=== PATIENT | male | born 1955 | race Caucasian/White ===

== ENCOUNTER 2016-06-01 01:34 | Emergency (ER) | payer MEDICARE ==
[2016-06-01 02:44] VITALS: BP 140/62
[2016-06-01] MEDS ORDERED: Sulfamethoxazole/Trimethoprim 800-160 MG Tab ONE (02:45)
[2016-06-01] MEDS: Ondansetron 4 MG Tab.DIS PO ONE ×2 (03:45→03:46)
[2016-06-01] MEDS ORDERED: Meperidine PF 50 MG/ML Syringe IM ONE (03:45)
[2016-06-01] MEDS ORDERED: Meperidine PF 50 MG/ML Syringe ONE (03:47)
[2016-06-01] MEDS ORDERED: Ondansetron 4 MG Tab.DIS ONE ×2 (03:47→03:54)
--- NOTE | 2016-06-01 07:57 | CT ---
DATE OF SERVICE: 06/01/16 CLINICAL DATA: dizzy UNENHANCED BRAIN CT: Multislice slice acquisition through the brain without IV contrast was performed. Comparison is made to a prior exam dated 07/02/2014. There are periventricular lucencies bilaterally consistent with small vessel ischemic change. No masses or mass effect. No intracranial hemorrhage. No evidence of acute or subacute infarct. There is a rounded low density lesion in the right sphenoid sinus consistent with a retention cyst or polyp. There is mild mucosal thickening within the ethmoid and frontal sinuses consistent with chronic sinusitis. No air-fluid levels. No fractures. IMPRESSION: No acute intracranial abnormalities. [id number] [facility]
--- NOTE | 2016-06-09 21:26 | EDM.PDOC ---
ED HPI DIZZINESS - General Chief Complaint: General Stated Complaint: DIZZY Time Seen by Provider: 06/01/16 02:50 Source: Reports: Patient Exam Limitations: Reports: No limitations - History of Present Illness INITIAL COMMENTS - FREE TEXT/NARRATIVE: This is a 61yo M here for complaints of dizziness. Patient states he has felt this way for a day. He denies any other concerns. No fever, no chills, no sob, no chest pain, no weakness, history of left arm disability from a fall hitting his head on cement at work. Patient states he also has a mild headache. Patient denies any loc or nausea. Timing/Duration: Reports: Day(s): Severity: mild Worsens With: Reports: head movement - Related Data Allergies/ADRs: Allergies Allergy/AdvReac Type Severity Reaction Status Date / Time Penicillins Allergy Unknown unknown Verified 07/02/14 06:00 Home Meds: Home Meds Naproxen [Naprosyn] 500 mg PO BID 07/02/14 [History] OLANZapine 10 mg PO BEDTIME 07/02/14 [History] Cyclobenzaprine [Flexeril] 5 mg PO DAILY 06/01/16 [History] Social & Family History - Tobacco Use Smoking Status *Q: Never Smoker Second Hand Smoke Exposure: No - Alcohol Use Days Per Week of Alcohol Use: 0 - Recreational Drug Use Recreational Drug Use: No ED ROS GENERAL - Review of Systems Review Of Systems: ROS reveals no pertinent complaints other than HPI. ED EXAM, DIZZINESS - Physical Exam Exam: See Below Exam Limited By: No limitations General Appearance: alert, WD/WN, mild distress Eye Exam: bilateral eye: EOMI, PERRL Ears: normal external exam, normal canal, hearing grossly normal, normal TMs Nose: normal inspection, normal mucosa, no blood Throat/Mouth: Normal inspection, Normal lips, Normal teeth, Normal gums, Normal oropharynx, Normal voice, No airway compromise Head Exam: atraumatic, normocephalic Neck: normal inspection, supple, non-tender, full range of motion Respiratory/Chest: no respiratory distress, lungs clear, normal breath sounds Cardiovascular: normal peripheral pulses, regular rate, rhythm, no edema, no JVD , no murmur, no rub GI/Abdominal: normal bowel sounds, soft, non tender Neurological: alert, normal mood/affect, normal dorsiflexion, CN II-XII intact, normal plantar flexion, normal gait, normal reflexes, no motor/sensory deficits , oriented x 3, other (prior history of left arm tremors and weakness- at baseline per patient) DTR: 2+: bicep (R), bicep (L) Back Exam: normal inspection, full range of motion Extremities: normal inspection, normal range of motion, non-tender, no pedal edema, normal capillary refill Psychiatric: anxious Skin Exam: Warm, Dry, Intact Course - Vital Signs Last Recorded V/S: Last Vital Signs Temp 36.8 C 06/01/16 02:42 Pulse 66 06/01/16 02:42 Resp 20 06/01/16 02:42 BP 140/62 06/01/16 02:42 Pulse Ox 99 06/01/16 02:42 - Orders/Labs/Meds Labs: Laboratory Tests 06/01/16 06/01/16 Range/Units 02:50 02:50 WBC 7.4 (4.0-11.0) K/uL RBC 4.98 (4.50-6.50) M/uL Hgb 14.4 (13.0-18.0) g/dL Hct 41.2 (40.0-54.0) % MCV 83 (76-96) fL MCH 28.9 (27.0-32.0) pg MCHC 35.0 (31.0-35.0) g/dL RDW 13.3 (11.0-16.0) % Plt Count 165 (150-400) K/uL MPV 10.3 H (6.0-10.0) fL Neut % (Auto) 82.7 H (45.0-70.0) % Lymph % (Auto) 10.9 L (20.0-40.0) % [place] % (Auto) 5.0 (3.0-10.0) % Eos % (Auto) 0.9 L (1.0-5.0) % Baso % (Auto) 0.5 (0.0-0.5) % Neut # 6.13 (2.00-7.50) K/uL Lymph # 0.81 L (1.50-4.00) K/uL [place] # 0.37 (0.20-0.80) K/uL Eos # 0.07 (0.04-0.40) K/uL Baso # 0.04 (0.02-0.10) K/uL Sodium 139 (136-145) mmol/L Potassium 3.4 L (3.5-5.1) mmol/L Chloride 104 (98-107) mmol/L Carbon Dioxide 24.4 (21.0-32.0) mmol/L Anion Gap 14.0 (5.0-15.0) mmol/L BUN 12 (8-26) mg/dL Creatinine 1.21 (0.70-1.30) mg/dL Est Cr Clr Drug Dosing 66.55 mL/min Estimated GFR (MDRD) > 60 (>60) MLS/MIN BUN/Creatinine Ratio 9.9 (6-25) Glucose 174 H (74-100) mg/dL Calcium 8.0 L (8.5-10.1) mg/dL Total Bilirubin 0.8 D (0.0-1.0) mg/dL AST 17 (15-37) U/L ALT 20 (12-78) U/L Alkaline Phosphatase 62 (46-116) U/L Total Protein 6.7 (6.4-8.2) g/dL Albumin 3.2 L (3.4-5.0) g/dL Globulin 3.5 (2.2-4.2) g/dL Albumin/Globulin Ratio 0.9 (0.8-2.0) Meds: Medications Discontinued Medications Generic Name Dose Route Start Last Admin Trade Name Freq PRN Reason Stop Dose Admin Meclizine HCl 25 mg 06/01/16 02:56 06/01/16 02:59 Antivert PO 25 mg DAILY PRN Administration Dizziness Meclizine HCl Confirm 06/01/16 02:58 06/01/16 03:06 Antivert Administered 06/01/16 02:59 Not Given Dose 25 mg .ROUTE .STK-MED ONE Meperidine HCl Confirm 06/01/16 03:47 Demerol Administered 06/01/16 03:48 Dose 50 mg .ROUTE .STK-MED ONE Meperidine HCl 25 mg 06/01/16 03:45 06/01/16 04:07 Demerol IM 06/01/16 03:46 25 mg ONETIME ONE Administration Ondansetron HCl Confirm 06/01/16 03:47 Zofran Odt Administered 06/01/16 03:48 Dose 4 mg .ROUTE .STK-MED ONE Ondansetron HCl 4 mg 06/01/16 03:45 06/01/16 03:46 Zofran Odt PO 06/01/16 03:46 4 mg ONETIME ONE Administration Ondansetron HCl Confirm 06/01/16 03:54 Zofran Odt Administered 06/01/16 03:55 Dose 4 mg .ROUTE .STK-MED ONE Trimethoprim/Sulfamethoxazole 20 tab 06/01/16 02:45 Septra Ds .ROUTE 06/01/16 02:46 .STK-MED ONE Departure - Departure Time of Disposition: 04:00 Disposition: DC/Tfer to Hospice - Home 50 Condition: good Clinical Impression: Dizziness Instructions: Dizziness, [id number] Referrals: PCP,None [Primary Care Provider] - Forms: ED Department Discharge Additional Instructions: Follow-up in the clinic in three to four days if you are still dizzy. Take the full course of antibiotics and fill the script for the last three days. Take the meclizine as needed for the dizziness if it comes back. - Problem List Review Problem List Initiated/Reviewed/Updated: Yes - Assessment/Plan Plan: Patient counseled on close monitoring and f/u in clinic or ER if symptoms worsen. Patient agrees to f/u in clinic if symptoms persist or worsen. Patient was very anxious but both anxiety and dizziness improved after reassurance.
== END 2016-06-01 08:09 | disposition hospice, home (50) ==
LOC: LB.ED 01:34
DX: R42 Dizziness and giddiness (principal); Z88.0 Allergy status to penicillin
CPT/HCPCS: 36415; 70450; 80053; 85025; 96372; 99285; A0425; A0429; A9270; J2175; 99283

== ENCOUNTER 2016-10-24 07:39 | Emergency (ER) | payer MEDICARE ==
[2016-10-24 08:03] VITALS: BP 186/94
[2016-10-24] MEDS ORDERED: predniSONE 10 MG Tab ONE (08:30)
[2016-10-24] MEDS ORDERED: Acetaminophen/HYDROcodone 325-5 MG Tab ONE (08:30)
[2016-10-24] MEDS ORDERED: Triamcinolone Acetonide 40 MG/ML 1 ML MDV ONE (08:40)
[2016-10-24] MEDS ORDERED: Triamcinolone Acetonide 40 MG/ML 1 ML MDV INJECT ONE (08:44)
--- NOTE | 2016-10-24 08:47 | EDM.PDOC ---
ED HPI GENERAL MEDICAL PROBLEM - General Chief Complaint: Lower Extremity Injury/Pain Stated Complaint: RIGHT FOOT PAIN Time Seen by Provider: 10/24/16 08:20 Source of Information: Reports: Patient History Limitations: Reports: No Limitations - History of Present Illness INITIAL COMMENTS - FREE TEXT/NARRATIVE: Pt claims that his right foot has been swollen, painful and red for the past 1 wk now. He does have history of gout and was waiting for the pain and swelling to resolve.But the swelling has got worse and more painful. He has been eating Hamburgers al week. His last episode of gout was about 6 months ago. No fever or chills. Is able to walk on the right foot. rates pain at 10/10. Has taken aleeve 4 tabs today morning. Duration: Week(s): (1) Improves with: Reports: None Worsens with: Reports: None Associated Symptoms: Denies: Confusion, Chest Pain, Cough, Diaphoresis, Fever/ Chills, Nausea/Vomiting, Rash, Seizure, Shortness of Breath, Weakness Treatments DIRECTOR AND PROFESSOR: Reports: NSAIDS right foot Pain Score (Numeric/FACES): 10 - Related Data Allergies Allergy/AdvReac Type Severity Reaction Status Date / Time Penicillins Allergy Unknown unknown Verified 10/24/16 07:56 Home Meds: Home Meds Naproxen [Naprosyn] 500 mg PO BID 07/02/14 [History] OLANZapine 10 mg PO BEDTIME 07/02/14 [History] Cyclobenzaprine [Flexeril] 5 mg PO DAILY 06/01/16 [History] Social & Family History - Tobacco Use Smoking Status *Q: Never Smoker Second Hand Smoke Exposure: No - Alcohol Use Days Per Week of Alcohol Use: 0 - Recreational Drug Use Recreational Drug Use: No Review of Systems - Review of Systems Review Of Systems: See Below Constitutional: Denies: Chills, Fever Eyes: Denies: Inflammation Ears: Denies: Pain Nose: Denies: Purulent Discharge, Serosanguinous Discharge Mouth/Throat: Denies: Throat Swelling, Painful Swallowing Respiratory: Denies: Cough, Sputum Cardiovascular: Denies: Chest Pain, Palpitations GI/Abdominal: Denies: Abdominal Pain, Hematemesis Musculoskeletal: Reports: Foot Pain, Joint Pain, Joint Swelling Neurological: Denies: Confusion, Dizziness ED EXAM, GENERAL - Physical Exam Exam: See Below Exam Limited By: No Limitations General Appearance: Alert, WD/WN, No Apparent Distress Eye Exam: Bilateral Eye: EOMI, PERRL Ears: Normal External Exam, Normal Canal, Hearing Grossly Normal, Normal TMs Ear Exam: Bilateral Ear: Auricle Normal, Canal Normal, TM normal Nose: Normal Inspection, Normal Mucosa, No Blood Throat/Mouth: Normal Inspection, Normal Lips, Normal Teeth, Normal Gums, Normal Oropharynx, Normal Voice, No Airway Compromise Head: Atraumatic, Normocephalic Neck: Normal Inspection, Supple, Non-Tender, Full Range of Motion Respiratory/Chest: No Respiratory Distress, Lungs Clear, Normal Breath Sounds, No Accessory Muscle Use, Chest Non-Tender Cardiovascular: Normal Peripheral Pulses, Regular Rate, Rhythm, No Edema, No Gallop, No JVD, No Murmur, No Rub Extremities: Other (Right Foot: there is swelling and erythema over the right gret toe and the 1st MTP joint. Warm and tender to touch. ) Neurological: Alert, Oriented, CN II-XII Intact, Normal Cognition, Normal Gait, Normal Reflexes, No Motor/Sensory Deficits Course - Vital Signs Text/Narrative:: Pt as subacute Gout attack of the right great toe. This has been going on for 1 wk now, colcrys might not help this late with he attack. hence patient did receive kenalog 40mg Im and also I have placed him on Quick tapering dose of prednisone. Advised rest to the foot. Pain control by alternating motrin 800mg with vicodin every 4 hrs. followup in clinic next week for recheck. Last Recorded V/S: Last Vital Signs Temp 97.1 F 10/24/16 07:56 Pulse 74 10/24/16 07:56 Resp BP 186/94 H 10/24/16 07:56 Pulse Ox 98 10/24/16 07:56 - Orders/Labs/Meds Meds: Medications Discontinued Medications Generic Name Dose Route Start Last Admin Trade Name [place] PRN Reason Stop Dose Admin Triamcinolone Acetonide Confirm 10/24/16 08:40 Kenalog-40 Administered 10/24/16 08:41 Dose 40 mg .ROUTE .STK-MED ONE Triamcinolone Acetonide 40 mg 10/24/16 08:44 10/24/16 08:37 Kenalog-40 INJECT 10/24/16 08:45 40 mg ONETIME ONE Administration Departure - Departure Time of Disposition: 09:00 Disposition: Home, Self-Care 01 Condition: Fair Clinical Impression: Acute gout - Discharge Information Instructions: Low-Purine Diet, Gout, [id number] Referrals: PCP,None [Primary Care Provider] - Forms: ED Department Discharge Additional Instructions: Do not take the Aleve until the flare up is gone, you can take the Motrin 800mg every 6 hours as needed and the [place] every 8 hours as needed for the pain. The prednisone you will take: Day 1 (today) 6 tablets Day 2: 5 tablets Day 3: 4 tablets Day 4: 3 tablets These you will car pick up driver from the pharmacy Day 5: 2 tablets Day 6: 1 tablet Follow up in the clinic as needed - Problem List & Annotations (1) Acute gout SNOMED Code(s): 47243347, 96482839 Code(s): M10.9 - GOUT, UNSPECIFIED Status: Acute Current Visit: Yes - Problem List Review Problem List Initiated/Reviewed/Updated: Yes - Assessment/Plan Assessment:: Acute right foot gout Plan: Pt as subacute Gout attack of the right great toe. This has been going on for 1 wk now, colcrys might not help this late with he attack. hence patient did receive kenalog 40mg Im and also I have placed him on Quick tapering dose of prednisone. Advised rest to the foot. Pain control by alternating motrin 800mg with vicodin every 4 hrs. followup in clinic next week for recheck.
== END 2016-10-24 08:45 | disposition home or self-care (01) ==
LOC: LB.ED 07:39
DX: M10.9 Gout, unspecified (principal); Z88.0 Allergy status to penicillin; Z79.899 Other long term (current) drug therapy
CPT/HCPCS: 96372; 99283; A9270; J3301

== ENCOUNTER 2017-03-27 20:43 | Emergency (ER) | payer MEDICARE ==
[2017-03-27] MEDS: Sodium Chloride 0.9% 10 ML Syringe FLUSH PRN ×2 (21:05→21:40)
[2017-03-27] MEDS ORDERED: Glucagon,Human Recombinant 1 MG Vial IV ONE (21:34)
[2017-03-27] MEDS ORDERED: Sodium Chloride 0.9% 1,000 ML IV SCH (21:45)
--- NOTE | 2017-03-27 23:04 | EDM.PDOC ---
ED HPI GENERAL MEDICAL PROBLEM - General Chief Complaint: Gastrointestinal Problem Stated Complaint: foreign body in throat Time Seen by Provider: 03/27/17 20:50 Source of Information: Reports: Patient History Limitations: Reports: No Limitations - History of Present Illness INITIAL COMMENTS - FREE TEXT/NARRATIVE: Patient is a 62 year old man who has a history of stuck food in his throat who was eating a hamburger and the piece of meat and bread has gotten stuck in his throat. He cannot swallow water and is spitting up his saliva. He does feel a little nauseated and he is uncomfortable with the feeling of the meat being stuck. No other complaints. Onset: Today Onset Date: 03/27/17 Onset Time: 18:30 Duration: Hour(s): (2), Constant Location: Reports: Abdomen (Feels like food in stuck in his upper esophagus.) Quality: Reports: Ache, Same as Previous Episode Severity: Mild Improves with: Reports: None Worsens with: Reports: None Context: Reports: Other (Eating a hamburger.) Associated Symptoms: Reports: No Other Symptoms - Related Data Allergies Allergy/AdvReac Type Severity Reaction Status Date / Time Penicillins Allergy Unknown unknown Verified 10/24/16 07:56 Home Meds: Home Meds Naproxen [Naprosyn] 500 mg PO BID 07/02/14 [History] OLANZapine 10 mg PO BEDTIME 07/02/14 [History] Cyclobenzaprine [Flexeril] 5 mg PO DAILY 06/01/16 [History] Social & Family History - Tobacco Use Smoking Status *Q: Never Smoker Second Hand Smoke Exposure: No - Alcohol Use Days Per Week of Alcohol Use: 0 - Recreational Drug Use Recreational Drug Use: No ED ROS GENERAL - Review of Systems Review Of Systems: See Below Constitutional: Reports: Decreased Appetite HEENT: Reports: No Symptoms Respiratory: Reports: No Symptoms Cardiovascular: Reports: No Symptoms Endocrine: Reports: No Symptoms GI/Abdominal: Reports: Nausea, Other (Food is stuck in his upper throat area. No problems breathing.) : Reports: No Symptoms Musculoskeletal: Reports: No Symptoms Skin: Reports: No Symptoms Neurological: Reports: No Symptoms Psychiatric: Reports: No Symptoms Hematologic/Lymphatic: Reports: No Symptoms Immunologic: Reports: No Symptoms ED EXAM, GI/ABD - Physical Exam Exam: See Below Exam Limited By: No Limitations General Appearance: Alert, WD/WN, No Apparent Distress Eyes: Bilateral: Normal Appearance, EOMI Ears: Normal External Exam, Normal Canal, Hearing Grossly Normal, Normal TMs Nose: Normal Inspection, Normal Mucosa, No Blood Throat/Mouth: Normal Inspection, Normal Lips, Normal Teeth, Normal Gums, Normal Oropharynx, Normal Voice, No Airway Compromise Head: Atraumatic, Normocephalic Neck: Normal Inspection, Supple, Non-Tender, Full Range of Motion Respiratory/Chest: No Respiratory Distress, Lungs Clear, Normal Breath Sounds, No Accessory Muscle Use, Chest Non-Tender Cardiovascular: Normal Peripheral Pulses, Regular Rate, Rhythm, No Edema, No Gallop, No JVD, No Murmur, No Rub GI/Abdominal Exam: Normal Bowel Sounds, Soft, Non-Tender, No Organomegaly, No Distention, No Abnormal Bruit, No Mass, Pelvis Stable, Other (Feels like food is caught in his upper esophagus.) Back Exam: Normal Inspection Extremities: Normal Inspection, Normal Range of Motion, Non-Tender, Normal Capillary Refill, No Pedal Edema Neurological: Alert, Oriented, CN II-XII Intact, Normal Cognition, Normal Gait, Normal Reflexes, No Motor/Sensory Deficits Psychiatric: Normal Affect, Normal Mood Course - Vital Signs Text/Narrative:: Patient had an uneventful ED stay. As he calmed the bolus of hamburger seemed to move and get better. He was given 1 mg of IV Glucagon and the bolus of hamburger passed easily and he felt much better. He will see Dr. Shaw on March 30, 2017 to be set up for an EGD and possible dilation of his esophagus. He will return to ED if any problems arise before then. - Orders/Labs/Meds Orders: Active Orders 24 hr Category Date Time Status Sodium Chloride 0.9% [Normal Saline] 1,000 ml Med 03/27/17 21:45 Active IV ASDIRECTED Sodium Chloride 0.9% [Saline Flush] Med 03/27/17 21:35 Active 10 ml FLUSH ASDIRECTED PRN Saline Lock Insert [OM.PC] Routine Oth 03/27/17 21:35 Ordered Medication Orders Sodium Chloride (Normal Saline) 1,000 mls @ 125 mls/hr IV ASDIRECTED HODAN Sodium Chloride (Saline Flush) 10 ml FLUSH ASDIRECTED PRN PRN Reason: Keep Vein Open Labs: Laboratory Tests 03/27/17 03/27/17 Range/Units 21:15 21:15 WBC 9.6 D (4.0-11.0) K/uL RBC 5.36 (4.50-6.50) M/uL Hgb 15.8 (13.0-18.0) g/dL Hct 46.0 (40.0-54.0) % MCV 86 (76-96) fL MCH 29.5 (27.0-32.0) pg MCHC 34.3 (31.0-35.0) g/dL RDW 12.7 (11.0-16.0) % Plt Count 211 D (150-400) K/uL MPV 10.1 H (6.0-10.0) fL Neut % (Auto) 75.5 H (45.0-70.0) % Lymph % (Auto) 15.3 L (20.0-40.0) % [place] % (Auto) 6.4 (3.0-10.0) % Eos % (Auto) 2.2 (1.0-5.0) % Baso % (Auto) 0.6 H (0.0-0.5) % Neut # (Auto) 7.24 (2.00-7.50) K/uL Lymph # (Auto) 1.47 L (1.50-4.00) K/uL [place] # (Auto) 0.61 (0.20-0.80) K/uL Eos # (Auto) 0.21 (0.04-0.40) K/uL Baso # (Auto) 0.06 (0.02-0.10) K/uL Sodium 136 (136-145) mmol/L Potassium 3.9 (3.5-5.1) mmol/L Chloride 100 (98-107) mmol/L Carbon Dioxide 26.2 (21.0-32.0) mmol/L Anion Gap 13.7 (5.0-15.0) mmol/L BUN 15 D (8-26) mg/dL Creatinine 1.49 H D (0.70-1.30) mg/dL Est Cr Clr Drug Dosing 53.34 mL/min Estimated GFR (MDRD) 47 L (>60) MLS/MIN BUN/Creatinine Ratio 10.1 (6-25) Glucose 248 H D (74-100) mg/dL Calcium 8.6 (8.5-10.1) mg/dL Total Bilirubin 0.6 (0.0-1.0) mg/dL AST 12 L (15-37) U/L ALT 32 (12-78) U/L Alkaline Phosphatase 92 (46-116) U/L Total Protein 8.2 (6.4-8.2) g/dL Albumin 3.9 (3.4-5.0) g/dL Globulin 4.3 H (2.2-4.2) g/dL Albumin/Globulin Ratio 0.9 (0.8-2.0) Meds: Medications Generic Name Dose Route Start Last Admin Trade Name Freq PRN Reason Stop Dose Admin Sodium Chloride 1,000 mls @ 125 mls/hr 03/27/17 21:45 Normal Saline IV ASDIRECTED HODAN Sodium Chloride 10 ml 03/27/17 21:35 Saline Flush FLUSH ASDIRECTED PRN Keep Vein Open Discontinued Medications Generic Name Dose Route Start Last Admin Trade Name Freq PRN Reason Stop Dose Admin Glucagon 1 mg 03/27/17 21:34 Glucagen IV 03/27/17 21:35 ONETIME ONE Departure - Departure Time of Disposition: 23:10 Disposition: Home, Self-Care 01 Condition: Good Clinical Impression: Esophageal foreign body Qualifiers: Encounter type: initial encounter Qualified Code(s): T18.108A - Unspecified foreign body in esophagus causing other injury, initial encounter - Discharge Information Instructions: Swallowed Foreign Body, Adult, [id number], Choking, Pediatric Forms: ED Department Discharge - My Orders Last 24 Hours: My Active Orders 03/27/17 21:35 Sodium Chloride 0.9% [Saline Flush] 10 ml FLUSH ASDIRECTED PRN Saline Lock Insert [OM.PC] Routine 03/27/17 21:45 Sodium Chloride 0.9% [Normal Saline] 1,000 ml IV ASDIRECTED - Assessment/Plan Last 24 Hours: My Active Orders 03/27/17 21:35 Sodium Chloride 0.9% [Saline Flush] 10 ml FLUSH ASDIRECTED PRN Saline Lock Insert [OM.PC] Routine 03/27/17 21:45 Sodium Chloride 0.9% [Normal Saline] 1,000 ml IV ASDIRECTED
[2017-03-28 04:58] VITALS: BP 150/93
== END 2017-03-27 22:15 | disposition home or self-care (01) ==
LOC: LB.ED 20:43
DX: T18.108A Unspecified foreign body in esophagus causing other injury, initial encounter (principal); Z88.0 Allergy status to penicillin
CPT/HCPCS: 36415; 80053; 85025; 96374; 99283; J1610; J7050; A0425; A0429; J7040

== ENCOUNTER 2018-07-27 12:02 | Emergency (ER) | payer MEDICARE ==
[2018-07-27 13:48] VITALS: BP 149/86
--- NOTE | 2018-07-27 18:04 | EDM.PDOC ---
ED HPI GENERAL MEDICAL PROBLEM - General Chief Complaint: Headache Stated Complaint: headache Time Seen by Provider: 07/27/18 12:45 - History of Present Illness INITIAL COMMENTS - FREE TEXT/NARRATIVE: This is a 63yo M here for concerns of headache, visual changes, dizziness and inability to sleep. He states the headache did improve in the past with medications but is a constant 3-4/10 pain. He has not been able to sleep for weeks and sleeps an hour and then gets up. He feels dizzy at times and his largest concern is a visual disturbance of the left eye that causes blurriness or movement of objects forwards and back. Onset: Unknown/Unsure Duration: Week(s): Severity: Mild Improves with: Reports: None Worsens with: Reports: None Associated Symptoms: Reports: No Other Symptoms Head Pain Score (Numeric/FACES): 2 - Related Data Allergies Allergy/AdvReac Type Severity Reaction Status Date / Time Penicillins Allergy Unknown unknown Verified 07/27/18 13:38 Home Meds: Home Meds OLANZapine 30 mg PO BEDTIME 07/02/14 [History] Cyclobenzaprine [Flexeril] 5 mg PO DAILY 06/01/16 [History] Gabapentin [Neurontin] 100 mg PO TID 03/28/17 [History] Allopurinol [Zyloprim] 100 mg PO DAILY 07/27/18 [History] Cetirizine HCl [All Day Allergy] 10 mg PO DAILY 07/27/18 [History] Gabapentin [Neurontin] 100 mg PO TID 07/27/18 [History] Melatonin 5 mg PO DAILY 07/27/18 [History] Mirtazapine 45 mg PO DAILY 07/27/18 [History] Naproxen Sodium [Naproxen Sodium ER] 500 mg PO BID 07/27/18 [History] Omeprazole 40 mg PO DAILY 07/27/18 [History] Simethicone [Phazyme] 125 mg PO QID 07/27/18 [History] Zolpidem Tartrate [Zolpidem Tartrate ER] 12.5 mg PO DAILY 07/27/18 [History] tiZANidine HCl [Tizanidine HCl] 4 mg PO TID 07/27/18 [History] Past Medical History HEENT History: Reports: Other (See Below) Other HEENT History: Has had several times where he has or felt like he has had food lodged in esophagus, this time he could not get it down Gastrointestinal History: Reports: Gastritis Other Gastrointestinal History: pooisble gastric stricture Musculoskeletal History: Reports: Arthritis, Other (See Below) Other Musculoskeletal History: left arm surg states deficiet was from injury to neck Neurological History: Reports: Other (See Below) Other Neuro History: Patient is nervous and is anxious Psychiatric History: Reports: Schizophrenia - Infectious Disease History Infectious Disease History: Reports: Chicken Pox, Measles, Mumps - Past Surgical History Neurological Surgical History: Reports: C-Spine Social & Family History - Family History Family Medical History: Unobtainable - Tobacco Use Smoking Status *Q: Never Smoker Second Hand Smoke Exposure: No - Caffeine Use Caffeine Use: Reports: Soda - Recreational Drug Use Recreational Drug Use: No ED ROS GENERAL - Review of Systems Review Of Systems: ROS reveals no pertinent complaints other than HPI. - Physical Exam Exam: See Below Exam Limited By: No Limitations General Appearance: Alert, WD/WN, No Apparent Distress Eye Exam: Bilateral Eye: EOMI, PERRL Ears: Normal External Exam Nose: Normal Inspection, Normal Mucosa, No Blood Throat/Mouth: Normal Inspection Head Exam: Atraumatic, Normocephalic Neck: Normal Inspection, Supple, Non-Tender Respiratory/Chest: No Respiratory Distress, Lungs Clear, Normal Breath Sounds Cardiovascular: Normal Peripheral Pulses, Regular Rate, Rhythm GI/Abdominal: Normal Bowel Sounds, Soft, Non-Tender Neuro Exam (Abbreviated): Alert, Oriented, CN II-XII Intact, Normal Cognition, Normal Gait, Normal Reflexes, No Motor/Sensory Deficits Back Exam: Normal Inspection Extremities: Normal Inspection Psychiatric: Normal Affect, Normal Mood, Other (history of shcizophrenia) Skin Exam: Warm, Dry, Intact, Normal Color Course - Vital Signs Last Recorded V/S: Last Vital Signs Temp 36.6 C 07/27/18 13:00 Pulse 86 07/27/18 13:00 Resp 16 07/27/18 13:00 BP 149/86 H 07/27/18 13:00 Pulse Ox 98 07/27/18 13:00 - Orders/Labs/Meds Orders: Active Orders 24 hr Category Date Time Status Head wo Cont [CT] Stat Exams 07/27/18 13:09 Taken REVERSE T3, SERUM Stat Lab 07/27/18 13:30 Received THYROXINE (T4) FREE, DIRECT, S Stat Lab 07/27/18 13:30 Received VITAMIN B1 (THIAMINE), BLOOD Stat Lab 07/27/18 13:30 Received VITAMIN B12 Stat Lab 07/27/18 13:30 Received Labs: Laboratory Tests 07/27/18 07/27/18 Range/Units 13:30 13:30 WBC 8.0 (4.0-11.0) K/uL RBC 4.94 (4.50-6.50) M/uL Hgb 14.5 (13.0-18.0) g/dL Hct 42.6 (40.0-54.0) % MCV 86 (76-96) fL MCH 29.4 (27.0-32.0) pg MCHC 34.0 (31.0-35.0) g/dL RDW 14.8 (11.0-16.0) % Plt Count 168 D (150-400) K/uL MPV 9.7 (6.0-10.0) fL Neut % (Auto) 70.4 H (45.0-70.0) % Lymph % (Auto) 18.5 L (20.0-40.0) % [place] % (Auto) 7.6 (3.0-10.0) % Eos % (Auto) 2.9 (1.0-5.0) % Baso % (Auto) 0.6 H (0.0-0.5) % Neut # (Auto) 5.66 (2.00-7.50) K/uL Lymph # (Auto) 1.49 L (1.50-4.00) K/uL [place] # (Auto) 0.61 (0.20-0.80) K/uL Eos # (Auto) 0.23 (0.04-0.40) K/uL Baso # (Auto) 0.05 (0.02-0.10) K/uL Sodium 138 (136-145) mmol/L Potassium 4.2 (3.5-5.1) mmol/L Chloride 103 (98-107) mmol/L Carbon Dioxide 23.7 (21.0-32.0) mmol/L Anion Gap 15.5 H (5.0-15.0) mmol/L BUN 20 D (8-26) mg/dL Creatinine 1.39 H (0.70-1.30) mg/dL Est Cr Clr Drug Dosing TNP Estimated GFR (MDRD) 51 L (>60) MLS/MIN BUN/Creatinine Ratio 14.4 (6-25) Glucose 172 H D (74-100) mg/dL Calcium 7.9 L (8.5-10.1) mg/dL Total Bilirubin 0.5 D (0.0-1.0) mg/dL AST 20 (15-37) U/L ALT 31 (12-78) U/L Alkaline Phosphatase 68 (46-116) U/L Total Protein 7.7 (6.4-8.2) g/dL Albumin 3.4 (3.4-5.0) g/dL Globulin 4.3 H (2.2-4.2) g/dL Albumin/Globulin Ratio 0.8 (0.8-2.0) TSH, Ultra Sensitive 6.631 H D (0.358-3.740) uIU/mL Departure - Departure Time of Disposition: 16:00 Disposition: Home, Self-Care 01 Condition: Good Clinical Impression: Visual changes, Dizziness Headache Qualifiers: Headache type: unspecified Headache chronicity pattern: unspecified pattern Intractability: not intractable Qualified Code(s): R51 - Headache Schizophrenia Qualifiers: Schizophrenia type: unspecified Qualified Code(s): F20.9 - Schizophrenia, unspecified Insomnia Qualifiers: Insomnia type: unspecified Qualified Code(s): G47.00 - Insomnia, unspecified - Discharge Information Instructions: Zolpidem extended-release tablets Referrals: PCP,None [Primary Care Provider] - Forms: ED Department Discharge Care Plan Goals: Stop taking zolpidem Tartrate ER 6.25 and take the new prescription (to be filled at [facility]) in place of it. Zolpidem 10mg. Return to clinic August 11 at 11 am. - Problem List & Annotations (1) Dizziness SNOMED Code(s): 398397866, 274750391 Code(s): R42 - DIZZINESS AND GIDDINESS Status: Acute (2) Headache SNOMED Code(s): 85936344 Code(s): R51 - HEADACHE Status: Acute Qualifiers: Headache type: unspecified Headache chronicity pattern: unspecified pattern Intractability: not intractable Qualified Code(s): R51 - Headache (3) Insomnia SNOMED Code(s): 949166859 Code(s): G47.00 - INSOMNIA, UNSPECIFIED Status: Acute Qualifiers: Insomnia type: unspecified Qualified Code(s): G47.00 - Insomnia, unspecified (4) Schizophrenia SNOMED Code(s): 62103465 Code(s): F20.9 - SCHIZOPHRENIA, UNSPECIFIED Status: Acute Qualifiers: Schizophrenia type: unspecified Qualified Code(s): F20.9 - Schizophrenia, unspecified (5) Visual changes SNOMED Code(s): 095350975 Code(s): H53.9 - UNSPECIFIED VISUAL DISTURBANCE Status: Acute - Problem List Review Problem List Initiated/Reviewed/Updated: Yes - My Orders Last 24 Hours: My Active Orders 07/27/18 13:09 Head wo Cont [CT] Stat 07/27/18 13:30 REVERSE T3, SERUM Stat THYROXINE (T4) FREE, DIRECT, S Stat VITAMIN B1 (THIAMINE), BLOOD Stat VITAMIN B12 Stat - Assessment/Plan Last 24 Hours: My Active Orders 07/27/18 13:09 Head wo Cont [CT] Stat 07/27/18 13:30 REVERSE T3, SERUM Stat THYROXINE (T4) FREE, DIRECT, S Stat VITAMIN B1 (THIAMINE), BLOOD Stat VITAMIN B12 Stat Plan: Counseled extensively on headache and management. Discussed dizziness and prevention and f/u. Discussed visual changes with f/u with Delivery Man and further exam if symptoms persist or worsen. Discussed insomnia and medication use and sleep hygiene. F/u as directed with PCP, Psychiatrist and in ER or clinic as needed.
--- NOTE | 2018-07-28 08:39 | CT ---
DATE OF SERVICE: 07/27/18 CLINICAL DATA: Visual disturbance, headache, ringing of ears. UNENHANCED BRAIN CT: Multislice acquisition through the brain without IV contrast was performed. Comparison is made to a prior exam dated 06/01/16. No masses or mass effect. No intracranial hemorrhage. No evidence of acute or subacute infarct. There is rounded low density lesion in the right sphenoid sinus consistent with a retention cyst. No bony abnormalities. IMPRESSION: No acute intracranial abnormalities. [id number] [facility]
== END 2018-07-27 15:20 | disposition home or self-care (01) ==
LOC: LB.ED 12:02
DX: G47.00 Insomnia, unspecified (principal); R51 Headache; R42 Dizziness and giddiness; F20.9 Schizophrenia, unspecified; H53.9 Unspecified visual disturbance; Z88.0 Allergy status to penicillin
CPT/HCPCS: 36415; 70450; 80053; 82607; 84425; 84439; 84443; 84482; 85025; 99284-25

== ENCOUNTER 2018-08-09 10:23 | Emergency (ER) | payer MEDICARE ==
--- NOTE | 2018-08-09 11:13 | CT ---
DATE OF SERVICE: 08/09/18 CLINICAL DATA: Worsening hallucinations. UNENHANCED BRAIN CT: Multislice acquisition through the brain without IV contrast was performed. Comparison is made to a prior exam dated 07/27/18. No masses or mass effect. No intracranial hemorrhage. No evidence of acute or subacute infarct. No changes from the prior study. IMPRESSION: No acute intracranial abnormalities. [id number] [facility]
[2018-08-09 13:36] VITALS: BP 150/69
--- NOTE | 2018-08-15 12:18 | EDM.PDOC ---
ED HPI GENERAL MEDICAL PROBLEM - General Chief Complaint: General Stated Complaint: hearing threatening voices Time Seen by Provider: 08/09/18 10:50 Source of Information: Reports: Patient, Old Records, Provider - History of Present Illness INITIAL COMMENTS - FREE TEXT/NARRATIVE: This is a 63yo M with history of Schizophrenia here for worsening voices. He has noted increasing threatening voices with gun shot sounds in his head. He is becoming increasingly agitated and has not been able to sleep well for months. He feel the symptoms have worsened and is unbearable and was brought from the clinic to the ER. Onset: Gradual Duration: Chronic, Getting Worse Severity: Severe Improves with: Reports: None Worsens with: Reports: None Treatments [employer]: Reports: Other Medication(s) - Related Data Allergies Allergy/AdvReac Type Severity Reaction Status Date / Time Penicillins Allergy Unknown unknown Verified 07/27/18 13:38 Home Meds: Home Meds OLANZapine 30 mg PO BEDTIME 07/02/14 [History] Cyclobenzaprine [Flexeril] 5 mg PO DAILY 06/01/16 [History] Gabapentin [Neurontin] 100 mg PO TID 03/28/17 [History] Allopurinol [Zyloprim] 100 mg PO DAILY 07/27/18 [History] Cetirizine HCl [All Day Allergy] 10 mg PO DAILY 07/27/18 [History] Gabapentin [Neurontin] 100 mg PO TID 07/27/18 [History] Melatonin 5 mg PO DAILY 07/27/18 [History] Mirtazapine 45 mg PO DAILY 07/27/18 [History] Naproxen Sodium [Naproxen Sodium ER] 500 mg PO BID 07/27/18 [History] Omeprazole 40 mg PO DAILY 07/27/18 [History] Simethicone [Phazyme] 125 mg PO QID 07/27/18 [History] Zolpidem Tartrate [Zolpidem Tartrate ER] 12.5 mg PO DAILY 07/27/18 [History] tiZANidine HCl [Tizanidine HCl] 4 mg PO TID 07/27/18 [History] Meclizine HCl 25 mg PO DAILY 08/09/18 [History] Ondansetron HCl [Zofran] 4 mg PO QID PRN 08/09/18 [History] Past Medical History HEENT History: Reports: Other (See Below) Other HEENT History: Has had several times where he has or felt like he has had food lodged in esophagus, this time he could not get it down Gastrointestinal History: Reports: Gastritis Other Gastrointestinal History: pooisble gastric stricture Musculoskeletal History: Reports: Arthritis, Other (See Below) Other Musculoskeletal History: left arm surg states deficiet was from injury to neck Neurological History: Reports: Other (See Below) Other Neuro History: Patient is nervous and is anxious Psychiatric History: Reports: Schizophrenia - Infectious Disease History Infectious Disease History: Reports: Chicken Pox, Measles, Mumps - Past Surgical History Neurological Surgical History: Reports: C-Spine Social & Family History - Family History Family Medical History: Unobtainable - Tobacco Use Smoking Status *Q: Former Smoker Used Tobacco, but Quit: Yes Month/Year Tobacco Last Used: 1969 - Caffeine Use Caffeine Use: Reports: Soda - Recreational Drug Use Recreational Drug Use: No ED ROS GENERAL - Review of Systems Review Of Systems: ROS reveals no pertinent complaints other than HPI. ED EXAM, GENERAL - Physical Exam Exam: See Below Exam Limited By: No Limitations General Appearance: Alert, WD/WN, Anxious, Mild Distress Eye Exam: Bilateral Eye: EOMI, PERRL Ears: Normal External Exam Nose: Normal Inspection Throat/Mouth: Normal Inspection Head: Atraumatic, Normocephalic Neck: Normal Inspection, Supple, Non-Tender Respiratory/Chest: No Respiratory Distress, Lungs Clear Cardiovascular: Normal Peripheral Pulses, Regular Rate, Rhythm Peripheral Pulses: 2+: Dorsalis Pedis (L), Dorsalis Pedis (R) GI/Abdominal: Normal Bowel Sounds Neurological: Alert, Oriented, CN II-XII Intact Psychiatric: Normal Affect, Normal Mood Skin Exam: Warm, Dry, Intact Course - Vital Signs Last Recorded V/S: Last Vital Signs Temp 36.6 C 08/09/18 13:35 Pulse 75 08/09/18 13:35 Resp 18 08/09/18 13:35 BP 150/69 H 08/09/18 13:35 Pulse Ox 99 08/09/18 13:35 - Orders/Labs/Meds Labs: Laboratory Tests 08/09/18 08/09/18 08/09/18 Range/Units 10:50 10:53 10:53 WBC 7.7 (4.0-11.0) K/uL RBC 4.94 (4.50-6.50) M/uL Hgb 14.6 (13.0-18.0) g/dL Hct 43.7 (40.0-54.0) % MCV 89 (76-96) fL MCH 29.6 (27.0-32.0) pg MCHC 33.4 (31.0-35.0) g/dL RDW 15.2 (11.0-16.0) % Plt Count 210 D (150-400) K/uL MPV 9.8 (6.0-10.0) fL Neut % (Auto) 65.6 (45.0-70.0) % Lymph % (Auto) 20.1 (20.0-40.0) % [place] % (Auto) 8.7 (3.0-10.0) % Eos % (Auto) 4.6 (1.0-5.0) % Baso % (Auto) 1.0 H (0.0-0.5) % Neut # (Auto) 5.04 (2.00-7.50) K/uL Lymph # (Auto) 1.54 (1.50-4.00) K/uL [place] # (Auto) 0.67 (0.20-0.80) K/uL Eos # (Auto) 0.35 (0.04-0.40) K/uL Baso # (Auto) 0.08 (0.02-0.10) K/uL Sodium 142 (136-145) mmol/L Potassium 4.3 (3.5-5.1) mmol/L Chloride 104 (98-107) mmol/L Carbon Dioxide 28.2 (21.0-32.0) mmol/L Anion Gap 14.1 (5.0-15.0) mmol/L BUN 14 D (8-26) mg/dL Creatinine 1.28 (0.70-1.30) mg/dL Est Cr Clr Drug Dosing TNP Estimated GFR (MDRD) 56 L (>60) MLS/MIN BUN/Creatinine Ratio 10.9 (6-25) Glucose 100 D (74-100) mg/dL Calcium 8.2 L (8.5-10.1) mg/dL Total Bilirubin 0.7 D (0.0-1.0) mg/dL AST 22 (15-37) U/L ALT 28 (12-78) U/L Alkaline Phosphatase 65 (46-116) U/L Total Protein 8.2 (6.4-8.2) g/dL Albumin 3.8 (3.4-5.0) g/dL Globulin 4.4 H (2.2-4.2) g/dL Albumin/Globulin Ratio 0.9 (0.8-2.0) Free T4 Direct 1.21 (0.82-1.77) ng/dL TSH, Ultra Sensitive 6.498 H (0.358-3.740) uIU/mL Urine Color Urine Appearance (CLEAR) Urine pH (5.0-8.0) Ur Specific [place] (1.003-1.030) Urine Protein (NEGATIVE) mg/dL Urine Glucose (UA) (NEGATIVE) mg/dL Urine Ketones (NEGATIVE) mg/dL Urine Occult Blood (NEGATIVE) Urine Nitrite (NEGATIVE) Urine Bilirubin (NEGATIVE) Urine Urobilinogen (0.2-1.0) E.U./dL Ur Leukocyte Esterase (NEGATIVE) Urine RBC /HPF Urine WBC /HPF Urine Opiates Screen (NEGATIVE) Ur Oxycodone Screen (NEGATIVE) Urine Methadone Screen (NEGATIVE) Ur Barbiturates Screen (NEGATIVE) Ur Tricyclics Screen (NEGATIVE) Ur Phencyclidine Scrn (NEGATIVE) Ur Amphetamine Screen (NEGATIVE) U Methamphetamines Scrn (NEGATIVE) Urine MDMA Screen (NEGATIVE) U Benzodiazepines Scrn (NEGATIVE) U Cocaine Metab Screen (NEGATIVE) U Marijuana (THC) Screen (NEGATIVE) 08/09/18 08/09/18 Range/Units 13:14 13:20 WBC (4.0-11.0) K/uL RBC (4.50-6.50) M/uL Hgb (13.0-18.0) g/dL Hct (40.0-54.0) % MCV (76-96) fL MCH (27.0-32.0) pg MCHC (31.0-35.0) g/dL RDW (11.0-16.0) % Plt Count (150-400) K/uL MPV (6.0-10.0) fL Neut % (Auto) (45.0-70.0) % Lymph % (Auto) (20.0-40.0) % Broome % (Auto) (3.0-10.0) % Eos % (Auto) (1.0-5.0) % Baso % (Auto) (0.0-0.5) % Neut # (Auto) (2.00-7.50) K/uL Lymph # (Auto) (1.50-4.00) K/uL [place]ome # (Auto) (0.20-0.80) K/uL Eos # (Auto) (0.04-0.40) K/uL Baso # (Auto) (0.02-0.10) K/uL Sodium (136-145) mmol/L Potassium (3.5-5.1) mmol/L Chloride (98-107) mmol/L Carbon Dioxide (21.0-32.0) mmol/L Anion Gap (5.0-15.0) mmol/L BUN (8-26) mg/dL Creatinine (0.70-1.30) mg/dL Est Cr Clr Drug Dosing Estimated GFR (MDRD) (>60) MLS/MIN BUN/Creatinine Ratio (6-25) Glucose (74-100) mg/dL Calcium (8.5-10.1) mg/dL Total Bilirubin (0.0-1.0) mg/dL AST (15-37) U/L ALT (12-78) U/L Alkaline Phosphatase (46-116) U/L Total Protein (6.4-8.2) g/dL Albumin (3.4-5.0) g/dL Globulin (2.2-4.2) g/dL Albumin/Globulin Ratio (0.8-2.0) Free T4 Direct (0.82-1.77) ng/dL TSH, Ultra Sensitive (0.358-3.740) uIU/mL Urine Color Yellow Urine Appearance Clear (CLEAR) Urine pH 5.5 (5.0-8.0) Ur Specific [place] 1.025 (1.003-1.030) Urine Protein Negative (NEGATIVE) mg/dL Urine Glucose (UA) Negative (NEGATIVE) mg/dL Urine Ketones Negative (NEGATIVE) mg/dL Urine Occult Blood Trace-intact H (NEGATIVE) Urine Nitrite Negative (NEGATIVE) Urine Bilirubin Negative (NEGATIVE) Urine Urobilinogen 0.2 (0.2-1.0) E.U./dL Ur Leukocyte Esterase Negative (NEGATIVE) Urine RBC 0-5 H /HPF Urine WBC 0-5 H /HPF Urine Opiates Screen Negative (NEGATIVE) Ur Oxycodone Screen Negative (NEGATIVE) Urine Methadone Screen Negative (NEGATIVE) Ur Barbiturates Screen Negative (NEGATIVE) Ur Tricyclics Screen Negative (NEGATIVE) Ur Phencyclidine Scrn Negative (NEGATIVE) Ur Amphetamine Screen Negative (NEGATIVE) U Methamphetamines Scrn Negative (NEGATIVE) Urine MDMA Screen Negative (NEGATIVE) U Benzodiazepines Scrn Negative (NEGATIVE) U Cocaine Metab Screen Negative (NEGATIVE) U Marijuana (THC) Screen Negative (NEGATIVE) Meds: Medications Discontinued Medications Generic Name Dose Route Start Last Admin Trade Name Freq PRN Reason Stop Dose Admin Meclizine HCl Confirm 08/09/18 18:31 Antivert Administered 08/09/18 18:32 Dose 50 mg .ROUTE .STK-MED ONE Meclizine HCl 25 mg 08/09/18 18:26 08/09/18 18:28 Antivert PO 08/09/18 18:27 25 mg NOW STA Administration Departure - Departure Time of Disposition: 19:00 Disposition: DC/Tfer to Psych Hosp/Unit 65 Condition: Fair, Undetermined Clinical Impression: Schizophrenia, chronic with acute exacerbation - Discharge Information Referrals: PCP,None [Primary Care Provider] - Forms: ED Department Discharge - Problem List & Annotations (1) Schizophrenia, chronic with acute exacerbation SNOMED Code(s): 406448327 Code(s): F20.9 - SCHIZOPHRENIA, UNSPECIFIED Status: Acute Priority: High - Problem List Review Problem List Initiated/Reviewed/Updated: Yes - Assessment/Plan Plan: Patient assessed by Behavioral health Nurse through [facility]. Discussed plan of care with patient. He initially refused to go to [place] due to Insurance costs. After further discussion patient states he would like to go to [facility] for inpatient treatment. Patient transferred via BLS.
== END 2018-08-09 18:47 ==
LOC: LB.ED 10:23
DX: F20.9 Schizophrenia, unspecified (principal); Z87.891 Personal history of nicotine dependence; Z79.899 Other long term (current) drug therapy; Z88.0 Allergy status to penicillin
CPT/HCPCS: 36415; 70450; 80053; 80307; 81001; 84439; 84443; 84482; 85025; 99285; A0425; A0429; A9270; 99284

== ENCOUNTER 2018-12-08 06:58 | Emergency (ER) | payer MEDICARE ==
--- NOTE | 2018-12-08 08:11 | EDM.PDOC ---
ED HPI GENERAL MEDICAL PROBLEM - General Stated Complaint: ILL Time Seen by Provider: 12/08/18 07:35 Source of Information: Reports: Patient History Limitations: Reports: No Limitations - History of Present Illness INITIAL COMMENTS - FREE TEXT/NARRATIVE: This is a 63yo M with history of Schizophrenia here for concerns of insomnia for the past 8 days. He states that Dr. Martel has stopped all his medications including all his schizophrenia meds. He has some sounds of creaking of his neck and he hears sounds on his scalp. Onset: Gradual Duration: Day(s):, Constant Location: Reports: Head, Neck, Generalized Severity: Mild Improves with: Reports: None Worsens with: Reports: None Associated Symptoms: Reports: No Other Symptoms - Related Data Allergies Allergy/AdvReac Type Severity Reaction Status Date / Time Penicillins Allergy Unknown unknown Verified 07/27/18 13:38 Home Meds: Home Meds Mirtazapine 45 mg PO DAILY 07/27/18 [History] Suvorexant [Belsomra] 20 mg PO DAILY #30 tablet 12/08/18 [Rx] Past Medical History HEENT History: Reports: Other (See Below) Other HEENT History: Has had several times where he has or felt like he has had food lodged in esophagus, this time he could not get it down Gastrointestinal History: Reports: Gastritis Other Gastrointestinal History: pooisble gastric stricture Musculoskeletal History: Reports: Arthritis, Other (See Below) Other Musculoskeletal History: left arm surg states deficiet was from injury to neck Neurological History: Reports: Other (See Below) Other Neuro History: Patient is nervous and is anxious Psychiatric History: Reports: Schizophrenia - Infectious Disease History Infectious Disease History: Reports: Chicken Pox, Measles, Mumps - Past Surgical History Neurological Surgical History: Reports: C-Spine Social & Family History - Family History Family Medical History: Unobtainable - Caffeine Use Caffeine Use: Reports: Soda ED ROS GENERAL - Review of Systems Review Of Systems: ROS reveals no pertinent complaints other than HPI. ED EXAM, GENERAL - Physical Exam Exam: See Below Exam Limited By: No Limitations General Appearance: Alert, WD/WN, No Apparent Distress Eye Exam: Bilateral Eye: EOMI Ears: Normal External Exam Nose: Normal Inspection Throat/Mouth: Normal Inspection Head: Atraumatic, Normocephalic Neck: Normal Inspection Respiratory/Chest: No Respiratory Distress, Lungs Clear, Normal Breath Sounds Cardiovascular: Normal Peripheral Pulses, Regular Rate, Rhythm Neurological: Alert, Oriented Psychiatric: Normal Affect, Normal Mood Skin Exam: Warm, Dry, Intact Departure - Departure Time of Disposition: 08:00 Disposition: Home, Self-Care 01 Condition: Good Clinical Impression: Insomnia Qualifiers: Insomnia type: unspecified Qualified Code(s): G47.00 - Insomnia, unspecified - Discharge Information Prescriptions: Suvorexant [Belsomra] 20 mg PO DAILY #30 tablet Instructions: Insomnia Referrals: PCP,None [Primary Care Provider] - Additional Instructions: Follow up in clinic if neck continue to bother you in the morning. See Dr Jaime next week as scheduled via tele-med. - Problem List & Annotations (1) Insomnia SNOMED Code(s): 374365204 Code(s): G47.00 - INSOMNIA, UNSPECIFIED Status: Acute Priority: High Qualifiers: Insomnia type: unspecified Qualified Code(s): G47.00 - Insomnia, unspecified - Problem List Review Problem List Initiated/Reviewed/Updated: Yes - Assessment/Plan Plan: Patient to sign release for Dr. Martel records - would like to verify cessation of all medications. Per patient Dr. Martel told him to stop all meds as he was unable to stop the voices in his head. Patient has been on Belsomra in the past and it has worked - we will prescribe this and have the patient f/u with Dr. Martel and in clinic for close follow up. Patient to also f/u if any further concerns or issues.
== END 2018-12-08 07:59 | disposition home or self-care (01) ==
LOC: LB.ED 06:58
DX: G47.00 Insomnia, unspecified (principal); Z88.0 Allergy status to penicillin; Z79.899 Other long term (current) drug therapy
CPT/HCPCS: 99282; 99283

== ENCOUNTER 2018-12-10 00:40 | Emergency (ER) | payer MEDICARE ==
--- NOTE | 2018-12-10 01:06 | EDM.PDOC ---
ED HPI GENERAL MEDICAL PROBLEM - General Chief Complaint: General Stated Complaint: MY NECK STILL HAS CRACKLE IN IT Time Seen by Provider: 12/10/18 00:50 Source of Information: Reports: Patient History Limitations: Reports: No Limitations - History of Present Illness INITIAL COMMENTS - FREE TEXT/NARRATIVE: This patient presents to the ED "to ask a question." He states that the voices in his head are telling him they will separate his head from his neck with CO2 canisters and he wants to know if this is true because he sometimes hears a cracking noise in his neck and wonders if this is the CO2 working. The patient was observed sitting in his car in the ED parking lot for the past 5 hours before entering the hospital. He also states that he needs his ear drums checked. Onset: Unknown/Unsure Improves with: Reports: None Worsens with: Reports: None Associated Symptoms: Reports: No Other Symptoms - Related Data Allergies Allergy/AdvReac Type Severity Reaction Status Date / Time Penicillins Allergy Unknown unknown Verified 07/27/18 13:38 Home Meds: Home Meds Mirtazapine 45 mg PO DAILY 07/27/18 [History] Suvorexant [Belsomra] 20 mg PO DAILY #30 tablet 12/08/18 [Rx] Past Medical History HEENT History: Reports: Other (See Below) Other HEENT History: Has had several times where he has or felt like he has had food lodged in esophagus, this time he could not get it down Gastrointestinal History: Reports: Gastritis Other Gastrointestinal History: pooisble gastric stricture Musculoskeletal History: Reports: Arthritis, Other (See Below) Other Musculoskeletal History: left arm surg states deficiet was from injury to neck Neurological History: Reports: Other (See Below) Other Neuro History: Patient is nervous and is anxious Psychiatric History: Reports: Schizophrenia - Infectious Disease History Infectious Disease History: Reports: Chicken Pox, Measles, Mumps - Past Surgical History Neurological Surgical History: Reports: C-Spine Social & Family History - Family History Family Medical History: Unobtainable - Caffeine Use Caffeine Use: Reports: Soda ED ROS GENERAL - Review of Systems Review Of Systems: ROS reveals no pertinent complaints other than HPI. ED EXAM, GENERAL - Physical Exam Exam: See Below Exam Limited By: Other (schizophrenia) Eye Exam: Bilateral Eye: PERRL Ears: Normal External Exam, Normal Canal, Hearing Grossly Normal, Normal TMs Nose: Normal Inspection Head: Atraumatic, Normocephalic Neck: Normal Inspection, Full Range of Motion Respiratory/Chest: No Respiratory Distress, Lungs Clear, Normal Breath Sounds Cardiovascular: Regular Rate, Rhythm Neurological: Alert Skin Exam: Warm, Dry Course - Re-Assessments/Exams Free Text/Narrative Re-Assessment/Exam: 12/10/18 01:04 This patient presents to the ED to ask a question. His question was answered and he stated he was satisfied and wanted to leave. A brief PE reveals no physical injuries or signs of trauma. The patient admits to not taking his prescribed medications but stated he would start taking them later today. He is hemodynamically stable and there are no findings on brief physical examination. He will be discharged to home as per his request. Departure - Departure Time of Disposition: 01:15 Disposition: Home, Self-Care 01 Preliminary Cause of *Q: Sepsis & Multi System Organ Failure Condition: Good Clinical Impression: Mental health disorder - Discharge Information *PRESCRIPTION DRUG MONITORING PROGRAM REVIEWED*: No *COPY OF PRESCRIPTION DRUG MONITORING REPORT IN PATIENT GEORGIE: No Instructions: Schizophrenia
== END 2018-12-10 01:16 | disposition home or self-care (01) ==
LOC: LB.ED 00:40
DX: F09 Unspecified mental disorder due to known physiological condition (principal); Z79.899 Other long term (current) drug therapy; Z88.0 Allergy status to penicillin
CPT/HCPCS: 99284

== ENCOUNTER → 2019-02-13 | Outpatient (CLI) | payer MEDICARE | LOC: LB.CLINIC 16:04 | PROVIDERS: ATTEND Nurse Practitioner Family | DX: M79.89 Other specified soft tissue disorders (principal) | CPT/HCPCS: 36415; 84550 ==

== ENCOUNTER 2019-07-25 16:01 | Emergency (ER) | payer MEDICARE ==
--- NOTE | 2019-07-25 16:19 | EDM.PDOC ---
ED HPI GENERAL MEDICAL PROBLEM - General Stated Complaint: SIDE PAIN Time Seen by Provider: 07/25/19 16:15 Source of Information: Reports: Patient History Limitations: Reports: No Limitations - History of Present Illness INITIAL COMMENTS - FREE TEXT/NARRATIVE: Brett presents today for evaluation of some superficial tenderness of his chest wall. He noted this area yesterday just inferior to his left nipple. He continues to reproduce it by pressing on it, and when certain clothing's rub against his nipple he feels a sharp jab there. He denies any chest heaviness, exertional element of his symptoms, diaphoresis, or shortness of breath. He has really tried no measures. He is here mainly because it is very annoying to him. He denies any injuries. Left Chest Pain Score (Numeric/FACES): 4 - Related Data Allergies Allergy/AdvReac Type Severity Reaction Status Date / Time Penicillins Allergy Unknown unknown Verified 07/25/19 18:39 Home Meds: Home Meds allopurinoL [Zyloprim] 200 mg PO BID 07/25/19 [History] Past Medical History HEENT History: Reports: Other (See Below) Other HEENT History: Has had several times where he has or felt like he has had food lodged in esophagus, this time he could not get it down Gastrointestinal History: Reports: Gastritis Other Gastrointestinal History: pooisble gastric stricture Musculoskeletal History: Reports: Arthritis, Other (See Below) Other Musculoskeletal History: left arm surg states deficiet was from injury to neck Neurological History: Reports: Other (See Below) Other Neuro History: Patient is nervous and is anxious Psychiatric History: Reports: Schizophrenia - Infectious Disease History Infectious Disease History: Reports: Chicken Pox, Measles, Mumps - Past Surgical History Neurological Surgical History: Reports: C-Spine Social & Family History - Family History Family Medical History: Unobtainable - Caffeine Use Caffeine Use: Reports: Soda ED ROS GENERAL - Review of Systems Review Of Systems: See Below ED EXAM, GENERAL - Physical Exam Exam: See Below Exam Limited By: No Limitations General Appearance: Alert, WD/WN, No Apparent Distress Eye Exam: Bilateral Eye: EOMI, Normal Inspection Ears: Normal External Exam, Hearing Grossly Normal Head: Atraumatic, Normocephalic Neck: Normal Inspection, Full Range of Motion Respiratory/Chest: No Respiratory Distress, Normal Breath Sounds Cardiovascular: Regular Rate, Rhythm, No Murmur Extremities: Normal Inspection, Normal Range of Motion Neurological: Alert, Oriented, Normal Gait Psychiatric: Normal Affect, Normal Mood Skin Exam: Warm, Other (Careful palpation of his chest wall does not reveal any underlying rib deformity or tenderness, he does not appear to have any intercostal discomfort either. The area in question, almost feels like a tiny bit of potential glandular tissue as it is about 1 cm inferior to his nipple on the left. There is really no underlying subcutaneous finding of suspicion.) Course - Vital Signs Text/Narrative:: At this point, Brett seems to want reassurance. Discussed getting an EKG, although this certainly does not sound like anything to do with his heart. He is accepting of that. Plan to continue with symptomatic measures. He plans to follow this through to resolution, and promises to return with persistent or worsening issues. Last Recorded V/S: Last Vital Signs Temp 98 F 07/25/19 18:26 Pulse 63 07/25/19 18:26 Resp 20 07/25/19 18:26 BP 157/78 H 07/25/19 18:26 Pulse Ox 100 07/25/19 18:26 - Orders/Labs/Meds Orders: Active Orders 24 hr Category Date Time Status EKG Documentation Completion [RC] ASDIRECTED Care 07/25/19 16:13 Active Meds: Medications Discontinued Medications Generic Name Dose Route Start Last Admin Trade Name Channing PRN Reason Stop Dose Admin Lidocaine 700 mg 07/25/19 16:12 07/25/19 16:38 Lidoderm 5% TOP 07/25/19 16:13 700 mg ONETIME ONE Administration Naproxen 500 mg 07/25/19 16:13 07/25/19 16:38 Naprosyn PO 07/25/19 16:14 500 mg ONETIME ONE Administration Departure - Departure Time of Disposition: 16:18 Disposition: Home, W Home Health Agency 06 Condition: Good Clinical Impression: Chest wall discomfort - Discharge Information Instructions: Famotidine tablets or gelcaps, Naproxen and naproxen sodium oral immediate-release tablets, Gynecomastia, Adult, Lidocaine dermal patch Referrals: PCP,None [Primary Care Provider] - Forms: ED Department Discharge Care Plan Goals: Take aleve 1 tab 2 x day, take pepcid ac 2 x day, apply lidoderm patch to area daily. Should be subsiding in approximately 3 days. Return to clinic if needed. Sepsis Event Note - Focused Exam Date Exam was Performed: 07/26/19 Time Exam was Performed: 14:28 - My Orders Last 24 Hours: My Active Orders 07/25/19 16:13 EKG Documentation Completion [RC] ASDIRECTED - Assessment/Plan Last 24 Hours: My Active Orders 07/25/19 16:13 EKG Documentation Completion [RC] ASDIRECTED
[2019-07-25] MEDS: Naproxen 500 MG Tab PO ONE (16:38)
[2019-07-25] MEDS: Lidocaine 5% 700 MG Patch TOP ONE (16:38)
[2019-07-25 18:36] VITALS: BP 157/78; PULSE 63
== END 2019-07-25 16:45 | disposition home health service (06) ==
LOC: LB.ED 16:01
DX: R07.89 Other chest pain (principal); Z88.0 Allergy status to penicillin; Z79.899 Other long term (current) drug therapy
CPT/HCPCS: 93005; 99283; 99284-25; A9270-GY

== ENCOUNTER 2019-08-18 10:12 | Emergency (ER) | payer MEDICARE ==
--- NOTE | 2019-08-18 10:40 | EDM.PDOC ---
ED HPI GENERAL MEDICAL PROBLEM - General Chief Complaint: Chest Pain Stated Complaint: CHEST PAIN MIDLINE TO LEFT SIDE Time Seen by Provider: 08/18/19 10:25 Source of Information: Reports: Patient History Limitations: Reports: No Limitations - History of Present Illness INITIAL COMMENTS - FREE TEXT/NARRATIVE: This patient presents to the ED for evaluation of chest pain. He states that he has had persistent chest pain for the past 2 weeks "all day every day." He states the pain is on the right chest just under his nipple and is now moving across the front of his chest to the left. He states that he was seen 2 weeks ago for this and was told to come back if he didn't feel better. He was seen in the clinic for arm pain and was started on steroids and his chest pain was not discussed. He states the pain is worse today and that he does have trouble breathing too feeling short of breath when moving around his house and particularly short of breath with other tasks. He states he has nausea but denies vomiting or diarrhea. He has not had any weight loss. He denies cough or fever. He states that he is worried he has lung cancer because he read about it on the internet. Left Chest Pain Score (Numeric/FACES): 10 - Related Data Allergies Allergy/AdvReac Type Severity Reaction Status Date / Time Penicillins Allergy Unknown unknown Verified 08/18/19 10:34 Home Meds: Home Meds allopurinoL [Zyloprim] 200 mg PO BID 07/25/19 [History] Past Medical History HEENT History: Reports: Other (See Below) Other HEENT History: Has had several times where he has or felt like he has had food lodged in esophagus, this time he could not get it down Gastrointestinal History: Reports: Gastritis Other Gastrointestinal History: pooisble gastric stricture Musculoskeletal History: Reports: Arthritis, Other (See Below) Other Musculoskeletal History: left arm surg states deficiet was from injury to neck Neurological History: Reports: Other (See Below) Other Neuro History: Patient is nervous and is anxious Psychiatric History: Reports: Schizophrenia - Infectious Disease History Infectious Disease History: Reports: Chicken Pox, Measles, Mumps - Past Surgical History Neurological Surgical History: Reports: C-Spine Social & Family History - Family History Family Medical History: Unobtainable - Caffeine Use Caffeine Use: Reports: Soda ED ROS GENERAL - Review of Systems Review Of Systems: Comprehensive ROS is negative, except as noted in HPI. ED EXAM, GENERAL - Physical Exam Exam: See Below Exam Limited By: No Limitations General Appearance: Alert, WD/WN, No Apparent Distress Eye Exam: Bilateral Eye: PERRL Ears: Normal External Exam Nose: Normal Inspection Throat/Mouth: Normal Inspection Head: Atraumatic, Normocephalic Neck: Normal Inspection, Supple, Full Range of Motion Respiratory/Chest: No Respiratory Distress, Lungs Clear, No Accessory Muscle Use Cardiovascular: Regular Rate, Rhythm Extremities: Normal Range of Motion Psychiatric: Normal Affect, Normal Mood Skin Exam: Warm, Dry, Intact, Normal Color, No Rash Course - Vital Signs Last Recorded V/S: Last Vital Signs Temp 36.2 C 08/18/19 10:26 Pulse 71 08/18/19 11:51 Resp 18 08/18/19 11:51 BP 155/93 H 08/18/19 11:51 Pulse Ox 99 08/18/19 11:51 - Orders/Labs/Meds Labs: Laboratory Tests 08/18/19 Range/Units 10:44 Sodium 138 (136-145) mmol/L Potassium 4.0 (3.5-5.1) mmol/L Chloride 101 (98-107) mmol/L Carbon Dioxide 27.4 (21.0-32.0) mmol/L Anion Gap 13.6 (5.0-15.0) mmol/L BUN 24 D (8-26) mg/dL Creatinine 1.29 (0.70-1.30) mg/dL Est Cr Clr Drug Dosing 59.99 mL/min Estimated GFR (MDRD) 56 L (>60) MLS/MIN BUN/Creatinine Ratio 18.6 (6-25) Glucose 170 H D (74-100) mg/dL Calcium 8.9 (8.5-10.1) mg/dL - Re-Assessments/Exams Free Text/Narrative Re-Assessment/Exam: 08/18/19 12:00 This patient presents with chest pain. The work up in the ED for this visit and the previous one for the same concern were negative for acute cardiac or pulmonary findings. The differential diagnosis of chest pain is broad and includes life threatening etiologies such as acute coronary syndrome, myocardial infarction, pulmonary embolism, acute aortic dissection, amongst others. Other causes may include pneumonia, pneumothorax, chest wall source, pericarditis, pleurisy, esophageal spasm, etc. No serious etiology for the chest pain were detected today during this visit. Workup included a chest CT that did identify a small hiatal hernia. He will be treated with OTC antacids and instructed to try one. Close follow up with primary care is indicated should the pain continue, as further work up may be performed; this was made clear to the patient, who understands. Departure - Departure Time of Disposition: 12:00 Disposition: Home, Self-Care 01 Condition: Good Clinical Impression: Hiatal hernia Instructions: Hiatal Hernia Referrals: Edu Shaw MD [Primary Care Provider] - Forms: ED Department Discharge Care Plan Goals: May take over the counter antacid such as prilosec. Return to clinic or hospital with any questions or concerns. Sepsis Event Note - Evaluation Sepsis Screening Result: No Definite Risk - Focused Exam Vital Signs: Vital Signs Temp Pulse Resp BP Pulse Ox 08/18/19 11:51 71 18 155/93 H 99 08/18/19 10:26 36.2 C 77 18 153/93 H 100 Date Exam was Performed: 08/18/19 Time Exam was Performed: 11:59
[2019-08-18 11:51] VITALS: BP 155/93; PULSE 71
--- NOTE | 2019-08-18 11:57 | CT ---
DATE OF SERVICE: 08/18/2019 CLINICAL DATA: Persistent chest pain Enhanced chest CT: Multi slice axial acquisition with IV contrast was performed. No priors. No evidence of PE. No pneumothorax. No pleural effusions. No aortic aneurysm or dissection. The lungs are clear. The heart size is normal. No pericardial effusion. No hilar or mediastinal adenopathy. There is degenerative disc disease throughout the thoracic spine. There are flowing osteophytes throughout the mid and lower thoracic spine consistent with DISH. There is a small hiatal hernia. There is mural thickening throughout the esophagus suggesting esophagitis. There is diffuse fatty infiltration of the visualized liver. MTDD
== END 2019-08-18 12:02 | disposition home or self-care (01) ==
LOC: LB.ED 10:12
DX: K44.9 Diaphragmatic hernia without obstruction or gangrene (principal); M19.90 Unspecified osteoarthritis, unspecified site; Z79.899 Other long term (current) drug therapy; Z88.0 Allergy status to penicillin
CPT/HCPCS: 36415; 71260; 80048; 99285-25

== ENCOUNTER 2019-08-27 10:04 | Emergency (ER) | payer MEDICARE ==
[2019-08-27 10:33] VITALS: BP 144/87; PULSE 78
[2019-08-27] MEDS ORDERED: metFORMIN 500 MG Tab ONE ×2 (11:38→16:00)
--- NOTE | 2019-08-27 19:26 | ER ---
REASON FOR EMERGENCY ROOM VISIT: "Charley horses." HISTORY: This 64-year-old man comes in with increasing muscle cramps and "charley horses" involving his arms and legs over the past couple of weeks. He does state that he has a history of a tendency to develop charley horses in his arms and legs manifested by muscle cramping and this has gone on for a couple of years, but lately it has gotten quite worse over the past 2 weeks. Associated with these episodes of cramping, he has had some tingling over the anterolateral aspects of his thighs, also in his toes. Yesterday, he was particularly active with lawn mowing, etc. and doing work in his yard and overnight he states that his forearms and his calf muscles have had charley horses ever since. PAST MEDICAL HISTORY: Significant for; 1. Gastroesophageal reflux disease with possible spasm. 2. History of schizophrenia. 3. Cervical spine surgery. MEDICATIONS: Include: 1. Allopurinol 200 mg p.o. b.i.d. 2. Omeprazole 40 mg p.o. daily. REVIEW OF SYSTEMS: A comprehensive review of systems was undertaken and this was negative. ALLERGIES: PENICILLIN. FAMILY HISTORY: Significant that his mother and 2 sisters, all have diabetes. PHYSICAL EXAMINATION: GENERAL: Reveals an alert man in no acute distress. HEENT: Unremarkable. NECK: No adenopathy. No thyromegaly is noted. CHEST: Clear to auscultation. CARDIAC: Regular rate and rhythm without murmur. ABDOMEN: Soft and nontender. No hepatosplenomegaly or palpable masses noted. EXTREMITIES: Normal pulses. No edema. LABORATORY DATA: His CMP reveals that he has a blood glucose of 377. His serum creatinine is 1.35. His calcium is normal at 8.8 with an albumin of 3.6. Liver enzymes are normal. His electrolytes are sodium 133, potassium 5.1, CO2 is 24.5 with an anion gap of 15.6. As mentioned above, his blood glucose was 377. His last blood sugar on 08/17 is noted to be 170. His BUN is 20 and his creatinine is mildly elevated at 1.35 with an estimated GFR of 53 mL/minute. IMPRESSION: 1. Type 2 diabetes mellitus. Newly diagnosed. 2. Possible mild renal insufficiency secondary to #1. 3. Possible neuropathy secondary to #1. PLAN: I did discuss with him my impression that he appears to have type 2 diabetes and what this means. I described for him the underlying cause of this problem. I did note that he has had hemoglobin A1c determinations in the past, which have ranged between 5.8 and 6.6 over the past 2 years. He has never had any A1c values greater than 7.0. I suspect however that his A1c is higher now. I recommended that we get him started on metformin and explained the medication to him and some potential side effects including GI upset and diarrhea. To begin with, we will start him on 500 mg p.o. with the evening meal and we will set him up to see Dr. Shaw early this week. I have also made a referral to the diabetic nurse for further education for this patient. He understands and agrees with this plan. All questions were answered. RICKY /[id number]
== END 2019-08-27 12:00 | disposition home or self-care (01) ==
LOC: LB.ED 10:04
DX: E11.9 Type 2 diabetes mellitus without complications (principal); K21.9 Gastro-esophageal reflux disease without esophagitis; Z79.899 Other long term (current) drug therapy; Z88.0 Allergy status to penicillin
CPT/HCPCS: 36415; 80053; 99283; A9270-GY

== ENCOUNTER 2019-09-20 09:10 | Emergency (ER) | payer MEDICARE ==
[2019-09-20] MEDS ORDERED: Ondansetron 4 MG Tab.DIS PO ONE (09:30)
[2019-09-20] MEDS ORDERED: Ketorolac 60 MG/2 ML SDV IM ONE (09:30)
[2019-09-20] MEDS ORDERED: HYDROmorphone 4 MG/ML Syringe SUBCUT ONE (09:30)
[2019-09-20] MEDS ORDERED: Ondansetron 4 MG Tab.DIS ONE (09:38)
[2019-09-20] MEDS ORDERED: Ketorolac 60 MG/2 ML SDV ONE (09:38)
[2019-09-20] MEDS ORDERED: HYDROmorphone 2 MG/ML SDV ONE (09:39)
[2019-09-20] MEDS ORDERED: HYDROmorphone 4 MG/ML Syringe IVPUSH ONE (10:02)
[2019-09-20] MEDS ORDERED: Sodium Chloride 0.9% 1,000 ML IV ONE (10:03)
[2019-09-20] MEDS ORDERED: Morphine 5 MG/ML SDV IVPUSH ONE (10:36)
--- NOTE | 2019-09-20 10:44 | CT ---
DATE OF SERVICE: 09/20/2019 CLINICAL DATA: Headache and dizziness Unenhanced brain CT: Multislice acquisition through the brain without IV contrast was performed. Comparison is made to a prior exam dated 09 Aug 2018. There is mild atrophy. There are periventricular lucencies bilaterally consistent with small vessel ischemic change. No mass or mass effect. No intracranial hemorrhage. No evidence of acute or subacute infarct. There is a rounded low-density lesion in the right sphenoid sinus consistent with a retention cyst or polyp. No osseous abnormalities. Impression: No acute intracranial abnormalities. MTDD
[2019-09-20 11:06] VITALS: BP 177/83; PULSE 53
[2019-09-20] MEDS ORDERED: Sodium Chloride 0.9% 1,000 ML IV SCH (11:15)
[2019-09-20] MEDS ORDERED: Ondansetron 4 MG/2 ML SDV IVPUSH ONE (12:00)
[2019-09-20] MEDS ORDERED: Ondansetron 4 MG/2 ML SDV ONE (12:08)
--- NOTE | 2019-09-20 17:30 | ER ---
HPI: A 64-year-old male who comes in with complaints of dizziness, headache, and unsteadiness. He states this started a few days ago, but the last 2 days, it has been slowly getting worse, and today, it was bad enough, he thought he should come in. The patient tells me that he has not had any falls or injuries. He is able to stand and walk, but is quite unsteady when he tries this. He has had some nausea. He tells me that his entire head feels pressure. When asked about pain, he states if it is called pain, it would be 10/10, but he feels it is more of a pressure, and on the back of his head, there seems to be an area that when pressed it will make him more dizzy or even a little bit tired. The patient denies any chest pain, coughing, shortness of breath, fever. He has not been sick lately. He states he does have a history of migraines, but has not had one for quite a while. CURRENT MEDICATIONS: 1. Prednisone. 2. Metformin. 3. Allopurinol. 4. Omeprazole. 5. Trazodone. OBJECTIVE: GENERAL APPEARANCE: The patient is awake, but appears to prefer having his eyes closed and looking down. He tells me this is a more comfortable position. VITAL SIGNS: Reveal a blood pressure initially 160/92, pulse 82, temp 97, O2 sats 98% on room air. HEENT: Eyes, pupils equal, round, and reactive to light. The patient does not tolerate the eye exam very well and does not want to finish EOMs. NECK: The patient is able to turn and look both ways, but states the dizziness seems to get worse when he does this. When he sits still and looks down, he still is dizzy, but states it is a little better. He can touch his index fingers to his nose from an outstretched arm bilaterally, but struggles to do this. He his skin is clammy. I cannot reproduce any pain with palpation of the patient's scalp or neck. LUNGS: Clear. CARDIAC: Heart sounds distinct without murmurs. SKIN: Warm and dry. INITIAL TREATMENT PLAN: The patient was given Zofran sublingual, Toradol 60 mg IM, and Dilaudid 1 mg subcu. We monitored the patient for about 20 minutes, and he did not feel any relief at all. This was followed by starting an IV. We gave him a 500 mL bolus of normal saline and another 1 mg of Dilaudid as well as Antivert 25 mg. ER COURSE: Labs include a CBC showing a slightly elevated white count of 12.7, neutrophils 78.1. The comprehensive metabolic panel is unremarkable. Head CT is negative for any acute intracranial abnormalities. There is an incidental finding of a retention cyst in the right sphenoid sinus. At this point, we have been watching the patient for about an hour, and he states that he does not really feel any better. We did try morphine 4 mg IV and this also brought very little relief. The patient did have retching on 2 occasions and vomited a small amount of blood-tinged mucus on 1 occasion. At this point, I consulted with Dr. Martinez from the Service, who recommended the patient be transferred to a higher level of care for further evaluation. I then consulted with [facility] in [place], and Dr. Velasquez, accepted the patient. He will be transferred by ambulance to [facility] to their facility for direct admit. When I last spoke with the patient, he states that his symptoms are about the same as long as he looks down. It seems to be a little better. He feels the unsteadiness may be a little worse, but is unsure because he has not tried to stand other than when he went in the wheelchair to the CT. Most recent blood pressure 177/83, pulse 60, O2 sats 100%. DIAGNOSES: Severe dizziness and unsteadiness with headache. Etiology unclear at this time. CRS/MODL /[id number]
== END 2019-09-20 13:00 ==
LOC: LB.ED 09:10
DX: R42 Dizziness and giddiness (principal); R51 Headache; Z79.899 Other long term (current) drug therapy
CPT/HCPCS: 36415; 70450; 80053; 85025; 96361; 96372; 96374; 96375; 99285; A0425; A0429; A9270; J1170; J1885; J2270; J2405; J7030

== ENCOUNTER 2020-02-09 00:15 | Emergency (ER) | payer MEDICARE ==
[2020-02-09 00:30] VITALS: BP 166/86; PULSE 72
[2020-02-09] MEDS ORDERED: Metoclopramide 10 MG/2 ML SDV IM ONE (00:56)
[2020-02-09] MEDS ORDERED: hydrOXYzine HCl 25 MG Tab ONE ×2 (01:30→01:45)
[2020-02-09] MEDS ORDERED: Ketorolac 60 MG/2 ML SDV IM ONE (01:36)
[2020-02-09] MEDS ORDERED: Ketorolac 60 MG/2 ML SDV ONE (01:47)
--- NOTE | 2020-02-09 01:52 | EDM.PDOC ---
ED HPI GENERAL MEDICAL PROBLEM - General Chief Complaint: Headache Stated Complaint: Im having thunder clap headaches, worst headache. Time Seen by Provider: 02/09/20 00:30 Source of Information: Reports: Patient History Limitations: Reports: No Limitations - History of Present Illness INITIAL COMMENTS - FREE TEXT/NARRATIVE: Patient is a 64 y/o male who presents for thunderclap headache and worse headache of his life today. He admits to "googling" his symptoms and concerned for head bleed. Patient states he has had headaches chronically and takes steroids for them, which didn't help today. Headache is diffuse and described as constant and tension-like. He had an apt earlier in the outpatient clinic and forgot to mention the headaches. He admits he doesn't sleep well and discussed that with the provider in the outpatient clinic, but didn't fill the prescription that was sent. Patient denies any dizziness, vision changes, numbness/tingling, or weakness. Bilateral Headache Pain Score (Numeric/FACES): 8 - Related Data Allergies Allergy/AdvReac Type Severity Reaction Status Date / Time Penicillins Allergy Unknown Edema Verified 02/09/20 00:26 Home Meds: Home Meds RX: allopurinoL [Zyloprim] 200 mg PO BID 07/25/19 [History] Omeprazole 40 mg PO DAILY 08/27/19 [History] predniSONE [Prednisone] 10 mg PO DAILY 08/27/19 [History] metFORMIN HCl [Metformin HCl] 1 tab PO DAILY 09/20/19 [History] traZODone HCl [Trazodone HCl] 1 tab PO BEDTIME 09/20/19 [History] Past Medical History HEENT History: Reports: Cataract, Hard of Hearing, Impaired Vision Other HEENT History: Has had several times where he has or felt like he has had food lodged in esophagus, this time he could not get it down Cardiovascular History: Reports: Other (See Below) Other Cardiovascular History: chest wall pain Gastrointestinal History: Reports: Gastritis, GERD Other Gastrointestinal History: possible gastric stricture, hiatal hernia Musculoskeletal History: Reports: Arthritis, Neck Pain, Chronic, Other (See Below) Other Musculoskeletal History: left arm surg states deficiet was from injury to neck, has muscles spasms, has had head injury and states has had spasms since then (20 years Neurological History: Reports: Brain Injury, Other (See Below) Other Neuro History: Patient is nervous and is anxious, head injury 20 years ago Psychiatric History: Reports: Schizophrenia Other Psychiatric History: Pt states he has taken himself off all his psychiatric medications Endocrine/Metabolic History: Reports: Diabetes, Type II - Infectious Disease History Infectious Disease History: Reports: Chicken Pox, Measles, Mumps - Past Surgical History Neurological Surgical History: Reports: C-Spine Social & Family History - Family History Family Medical History: No Pertinent Family History - Caffeine Use Caffeine Use: Reports: None - Recreational Drug Use Recreational Drug Use: No ED ROS GENERAL - Review of Systems Review Of Systems: See Below Constitutional: Reports: No Symptoms HEENT: Reports: No Symptoms Respiratory: Reports: No Symptoms Cardiovascular: Reports: No Symptoms Endocrine: Reports: No Symptoms GI/Abdominal: Reports: No Symptoms Musculoskeletal: Reports: No Symptoms Skin: Reports: No Symptoms Neurological: Reports: Headache, Other (insomnia) ED EXAM, GENERAL - Physical Exam Exam: See Below Exam Limited By: No Limitations General Appearance: Alert, No Apparent Distress Eye Exam: Bilateral Eye: EOMI, PERRL Head: Atraumatic, Normocephalic Respiratory/Chest: No Respiratory Distress Extremities: Normal Inspection, Normal Range of Motion Neurological: Alert, Oriented, CN II-XII Intact, Normal Cognition, Normal Gait, No Motor/Sensory Deficits Psychiatric: Normal Affect, Normal Mood Skin Exam: Warm, Dry, Intact, Normal Color, No Rash Course - Vital Signs Text/Narrative:: CT head without bleed or mass. Reglan and toradol given, which helped with headache. Patient given prescriptions for reglan and hydroxyzine. Follow up with neurologist and PCP in 1 week. Last Recorded V/S: Last Vital Signs Temp 36.1 C 02/09/20 00:28 Pulse 72 02/09/20 00:28 Resp 18 02/09/20 00:28 BP 166/86 H 02/09/20 00:28 Pulse Ox 99 02/09/20 00:28 - Orders/Labs/Meds Orders: Active Orders 24 hr Category Date Time Status Head wo Cont [CT] Stat Exams 02/09/20 00:48 Taken Meds: Medications Discontinued Medications Generic Name Dose Route Start Last Admin Trade Name Freq PRN Reason Stop Dose Admin Ketorolac Tromethamine 60 mg 02/09/20 01:36 Toradol IM 02/09/20 01:37 ONETIME ONE Ketorolac Tromethamine Confirm 02/09/20 01:47 Toradol Administered 02/09/20 01:48 Dose 60 mg .ROUTE .STK-MED ONE Metoclopramide HCl 20 mg 02/09/20 00:56 02/09/20 01:14 Reglan IM 02/09/20 00:57 20 mg ONETIME ONE Administration Departure - Departure Time of Disposition: 02:00 Disposition: Home, Self-Care 01 Condition: Good Clinical Impression: Headache Qualifiers: Headache type: unspecified Headache chronicity pattern: unspecified pattern Intractability: not intractable Qualified Code(s): R51 - Headache Insomnia Qualifiers: Insomnia type: unspecified Qualified Code(s): G47.00 - Insomnia, unspecified - Discharge Information *PRESCRIPTION DRUG MONITORING PROGRAM REVIEWED*: Not Applicable *COPY OF PRESCRIPTION DRUG MONITORING REPORT IN PATIENT [place]: Not Applicable Referrals: PCP,None [Primary Care Provider] - Additional Instructions: Take reglan as directed for headaches and hydroxyzine at bedtime for sleep. Follow up with neurologist regarding headaches and longterm treatment. Follow up with psychiatrist for the fire cracker sounds that you hear when you try to sleep. Sepsis Event Note (ED) - Evaluation Sepsis Screening Result: No Definite Risk - Focused Exam Vital Signs: Vital Signs Temp Pulse Resp BP Pulse Ox 02/09/20 00:28 36.1 C 72 18 166/86 H 99 - My Orders Last 24 Hours: My Active Orders 02/09/20 00:48 Head wo Cont [CT] Stat - Assessment/Plan Last 24 Hours: My Active Orders 02/09/20 00:48 Head wo Cont [CT] Stat
--- NOTE | 2020-02-09 14:07 | CT ---
CLINICAL DATA: Head pain. UNENHANCED BRAIN CT: Comparison is made to a prior exam dated 20 September 2019. No masses or mass effect. No intracranial hemorrhage. No evidence of acute or subacute infarct. No osseous abnormalities. IMPRESSION: No acute intracranial abnormalities. Job: [id number] MTDD
== END 2020-02-09 01:55 | disposition home or self-care (01) ==
LOC: LB.ED 00:15
DX: G47.00 Insomnia, unspecified (principal); K21.9 Gastro-esophageal reflux disease without esophagitis; M19.90 Unspecified osteoarthritis, unspecified site; E11.9 Type 2 diabetes mellitus without complications; Z79.84 Long term (current) use of oral hypoglycemic drugs; Z88.0 Allergy status to penicillin; Z79.899 Other long term (current) drug therapy
CPT/HCPCS: 70450; 96372; 99284-25; A9270-GY; J1885; J2765

== ENCOUNTER 2020-02-11 13:41 | Emergency (ER) | payer MEDICARE ==
[2020-02-11 14:00] VITALS: BP 185/108; PULSE 90
--- NOTE | 2020-02-11 14:11 | EDM.PDOCBH ---
ED HPI GENERAL MEDICAL PROBLEM - General Chief Complaint: Behavioral/Psych Stated Complaint: hearing voices Time Seen by Provider: 02/11/20 14:00 Source of Information: Reports: Patient History Limitations: Reports: No Limitations - History of Present Illness INITIAL COMMENTS - FREE TEXT/NARRATIVE: Patient is a 64 y/o with PMHx significant for schizophrenia, who presents for au ditory hallucinations. He has seen psychiatrists in the past and the medications haven't helped. He wants to see Dr. Shaw and does not want a psych evaluation. Patient complains that the hallucinations are keeping him up. He denies any suicidal or homicidal thoughts. - Related Data Allergies Allergy/AdvReac Type Severity Reaction Status Date / Time Penicillins Allergy Unknown Edema Verified 02/11/20 13:56 Home Meds: Home Meds allopurinoL [Zyloprim] 200 mg PO BID 07/25/19 [History] Omeprazole 40 mg PO DAILY 08/27/19 [History] predniSONE [Prednisone] 10 mg PO DAILY 08/27/19 [History] metFORMIN HCl [Metformin HCl] 1 tab PO DAILY 09/20/19 [History] traZODone HCl [Trazodone HCl] 1 tab PO BEDTIME 09/20/19 [History] Past Medical History HEENT History: Reports: Cataract, Hard of Hearing, Impaired Vision Other HEENT History: Has had several times where he has or felt like he has had food lodged in esophagus, this time he could not get it down Cardiovascular History: Reports: Other (See Below) Other Cardiovascular History: chest wall pain Gastrointestinal History: Reports: Gastritis, GERD Other Gastrointestinal History: possible gastric stricture, hiatal hernia Musculoskeletal History: Reports: Arthritis, Neck Pain, Chronic, Other (See Below) Other Musculoskeletal History: left arm surg states deficiet was from injury to neck, has muscles spasms, has had head injury and states has had spasms since then (20 years Neurological History: Reports: Brain Injury, Other (See Below) Other Neuro History: Patient is nervous and is anxious, head injury 20 years ago Psychiatric History: Reports: Schizophrenia Other Psychiatric History: Pt states he has taken himself off all his psychiatric medications Endocrine/Metabolic History: Reports: Diabetes, Type II - Infectious Disease History Infectious Disease History: Reports: Chicken Pox, Measles, Mumps - Past Surgical History Neurological Surgical History: Reports: C-Spine Social & Family History - Family History Family Medical History: No Pertinent Family History - Caffeine Use Caffeine Use: Reports: None ED ROS GENERAL - Review of Systems Review Of Systems: See Below Constitutional: Reports: No Symptoms HEENT: Reports: No Symptoms Respiratory: Reports: No Symptoms Cardiovascular: Reports: No Symptoms Endocrine: Reports: No Symptoms GI/Abdominal: Reports: No Symptoms : Reports: No Symptoms Musculoskeletal: Reports: No Symptoms Skin: Reports: No Symptoms Neurological: Reports: No Symptoms Psychiatric: Reports: Hallucinations, Other (insomnia) ED EXAM, BEHAVIORAL HEALTH - Physical Exam Exam: See Below Exam Limited By: No Limitations General Appearance: Alert, No Apparent Distress Head: Atraumatic, Normocephalic Respiratory/Chest: No Respiratory Distress, No Accessory Muscle Use Extremities: Normal Inspection, Normal Range of Motion Neurological: Alert, Normal Mood/Affect, Normal Cognition, Normal Gait, Oriented x 3 Psychiatric: Alert, Normal Affect, Normal Cognition, Normal Mood, Oriented, Auditory Hallucinations Skin Exam: Warm, Dry, Intact, Normal color, No rash COURSE, BEHAVIORAL HEALTH COMP - Course Vital Signs: Last Vital Signs Temp 35.9 C L 02/11/20 13:50 Pulse 90 02/11/20 13:50 Resp 20 02/11/20 13:50 BP 185/108 H 02/11/20 13:50 Pulse Ox 100 02/11/20 13:50 Departure - Departure Time of Disposition: 14:06 Disposition: Home, Self-Care 01 Condition: Good Clinical Impression: Hallucinations - Discharge Information *PRESCRIPTION DRUG MONITORING PROGRAM REVIEWED*: Not Applicable *COPY OF PRESCRIPTION DRUG MONITORING REPORT IN PATIENT [place]: Not Applicable Forms: ED Department Discharge Additional Instructions: The clinic will contact you tomorrow to set you up with an appointment to see Dr. Shaw when he returns. Call with any questions. Sepsis Event Note (ED) - Focused Exam Vital Signs: Vital Signs Temp Pulse Resp BP Pulse Ox 02/11/20 13:50 35.9 C L 90 20 185/108 H 100
== END 2020-02-11 14:05 | disposition home or self-care (01) ==
LOC: LB.ED 13:41
DX: R44.0 Auditory hallucinations (principal); K21.9 Gastro-esophageal reflux disease without esophagitis; M19.90 Unspecified osteoarthritis, unspecified site; E11.9 Type 2 diabetes mellitus without complications; Z79.899 Other long term (current) drug therapy; Z79.84 Long term (current) use of oral hypoglycemic drugs
CPT/HCPCS: 99284

== ENCOUNTER 2020-05-05 15:13 | Emergency (ER) | payer MEDICARE ==
[2020-05-05] MEDS ORDERED: Metoprolol Tartrate 25 MG Tab PO ONE (15:49)
[2020-05-05] MEDS ORDERED: GI Cocktail Oral Solution 30 ML PO ONE (15:50)
[2020-05-05] MEDS ORDERED: LORazepam 0.5 MG Tab PO ONE (16:24)
[2020-05-05] MEDS ORDERED: Cyclobenzaprine 10 MG Tab PO ONE (16:25)
[2020-05-05] MEDS ORDERED: Sodium Chloride 0.9% 1,000 ML IV ONE (18:00)
[2020-05-05] MEDS ORDERED: Cyclobenzaprine 10 MG Tab ONE (19:00)
[2020-05-05 19:40] VITALS: BP 125/82; PULSE 88
--- NOTE | 2020-05-05 20:09 | EDM.PDOC ---
ED HPI GENERAL MEDICAL PROBLEM - General Chief Complaint: General Stated Complaint: Muscle Spasms Time Seen by Provider: 05/05/20 15:30 Source of Information: Reports: Patient History Limitations: Reports: No Limitations - History of Present Illness INITIAL COMMENTS - FREE TEXT/NARRATIVE: 65 year old male known patient of schizophrenia was on some anxiety medication & he stopped 4 days back himself & today he came with c/o spasm of different muscle of upper & lower legs - He also c/o racing of heart . He is also c/o epigastric discomfort -he was feeling restless - denies any fever,N/V , chest pain , shortness of breath ,wheezing - Related Data Allergies Allergy/AdvReac Type Severity Reaction Status Date / Time Penicillins Allergy Unknown Edema Verified 05/05/20 15:33 Home Meds: Home Meds allopurinoL [Zyloprim] 200 mg PO BID 07/25/19 [History] Omeprazole 40 mg PO DAILY 08/27/19 [History] predniSONE [Prednisone] 10 mg PO DAILY 08/27/19 [History] metFORMIN HCl [Metformin HCl] 1 tab PO DAILY 09/20/19 [History] traZODone HCl [Trazodone HCl] 1 tab PO BEDTIME 09/20/19 [History] Past Medical History HEENT History: Reports: Cataract, Hard of Hearing, Impaired Vision Other HEENT History: Has had several times where he has or felt like he has had food lodged in esophagus, this time he could not get it down Cardiovascular History: Reports: Other (See Below) Other Cardiovascular History: chest wall pain Gastrointestinal History: Reports: Gastritis, GERD Other Gastrointestinal History: possible gastric stricture, hiatal hernia Musculoskeletal History: Reports: Arthritis, Neck Pain, Chronic, Other (See Below) Other Musculoskeletal History: left arm surg states deficiet was from injury to neck, has muscles spasms, has had head injury and states has had spasms since then (20 years Neurological History: Reports: Brain Injury, Other (See Below) Other Neuro History: Patient is nervous and is anxious, head injury 20 years ago Psychiatric History: Reports: Schizophrenia Other Psychiatric History: Pt states he has taken himself off all his psychiatric medications Endocrine/Metabolic History: Reports: Diabetes, Type II - Infectious Disease History Infectious Disease History: Reports: Chicken Pox, Measles, Mumps - Past Surgical History Neurological Surgical History: Reports: C-Spine Social & Family History - Family History Family Medical History: No Pertinent Family History - Tobacco Use Tobacco Use Status *Q: Never Tobacco User Second Hand Smoke Exposure: No - Caffeine Use Caffeine Use: Reports: None - Alcohol Use Days Per Week of Alcohol Use: 1 Number of Drinks Per Day: 1 Total Drinks Per Week: 1 - Recreational Drug Use Recreational Drug Use: No ED ROS GENERAL - Review of Systems Review Of Systems: See Below Constitutional: Reports: No Symptoms HEENT: Reports: No Symptoms Respiratory: Reports: No Symptoms, Shortness of Breath, Wheezing, Cough, Sputum Cardiovascular: Reports: No Symptoms, Chest Pain, Palpitations, Syncope Endocrine: Reports: No Symptoms GI/Abdominal: Reports: Abdominal Pain Musculoskeletal: Reports: No Symptoms, Muscle Pain, Muscle Stiffness Neurological: Reports: No Symptoms Psychiatric: Reports: Anxiety ED EXAM, GENERAL - Physical Exam Exam: See Below Exam Limited By: No Limitations General Appearance: Alert, WD/WN, No Apparent Distress Course - Vital Signs Text/Narrative:: 65 year old male brought by ambulance due to muscle spasm -& racing of heart & epigastric discomfort He was on some antianxiety medication ,he stopped it suddenly - Vital monitored - heart rate was from 103 to 123 EKG done & discussed with receptionist dr clifford at [place] -he asked look for troponin.He said that if troponin is negative ,there no need to worry I give him 25 mg po metoprolol to counter tachycardia I also gave GI cocktail for epigastric discomfort I gave him 0.5 mg of Ativan & muscle relaxer Flexeril 10 mg po stat Started normal saline The patient was feeling better Discharge medication -The patient was discharged on Flexeril 10 mg poqd as needed Disposition -home condition at discharge -stable Last Recorded V/S: Last Vital Signs Temp 97.4 F 05/05/20 19:39 Pulse 88 05/05/20 19:39 Resp 18 05/05/20 19:39 BP 125/82 05/05/20 19:39 Pulse Ox 98 05/05/20 19:39 - Orders/Labs/Meds Orders: Active Orders 24 hr Category Date Time Status CXR [Chest 1V Frontal] [CR] Stat Exams 05/05/20 15:44 Taken Labs: Laboratory Tests 05/05/20 05/05/20 05/05/20 Range/Units 16:00 16:00 16:00 WBC 10.6 (4.0-11.0) K/uL RBC 4.36 L (4.50-6.50) M/uL Hgb 12.7 L (13.0-18.0) g/dL Hct 39.1 L (40.0-54.0) % MCV 90 (76-96) fL MCH 29.1 (27.0-32.0) pg MCHC 32.5 (31.0-35.0) g/dL RDW 15.1 (11.0-16.0) % Plt Count 300 (150-400) K/uL MPV 9.9 (6.0-10.0) fL Neut % (Auto) 74.5 H (45.0-70.0) % Lymph % (Auto) 16.8 L (20.0-40.0) % Barry % (Auto) 7.0 (3.0-10.0) % Eos % (Auto) 0.8 L (1.0-5.0) % Baso % (Auto) 0.9 H (0.0-0.5) % Neut # (Auto) 7.87 H (2.00-7.50) K/uL Lymph # (Auto) 1.77 (1.50-4.00) K/uL Barry # (Auto) 0.74 (0.20-0.80) K/uL Eos # (Auto) 0.08 (0.04-0.40) K/uL Baso # (Auto) 0.09 (0.02-0.10) K/uL Sodium 137 (136-145) mmol/L Potassium 4.0 (3.5-5.1) mmol/L Chloride 100 (98-107) mmol/L Carbon Dioxide 25.5 (21.0-32.0) mmol/L Anion Gap 15.5 H (5.0-15.0) mmol/L BUN 26 (8-26) mg/dL Creatinine 1.95 H D (0.70-1.30) mg/dL Est Cr Clr Drug Dosing TNP Estimated GFR (MDRD) 34 L (>60) MLS/MIN BUN/Creatinine Ratio 13.3 (6-25) Glucose 216 H (74-100) mg/dL Lactic Acid 4.5 H (0.4-2.0) mmol/L Calcium 8.6 (8.5-10.1) mg/dL Total Bilirubin 0.6 (0.0-1.0) mg/dL AST 15 (15-37) U/L ALT 26 (12-78) U/L Alkaline Phosphatase 58 (46-116) U/L Troponin I < 0.017 (0.000-0.060) ng/mL Total Protein 7.2 (6.4-8.2) g/dL Albumin 3.2 L (3.4-5.0) g/dL Globulin 4.0 (2.2-4.2) g/dL Albumin/Globulin Ratio 0.8 (0.8-2.0) Urine Color Urine Appearance (CLEAR) Urine pH (5.0-8.0) Ur Specific Charlton (1.003-1.030) Urine Protein (NEGATIVE) mg/dL Urine Glucose (UA) (NEGATIVE) mg/dL Urine Ketones (NEGATIVE) mg/dL Urine Occult Blood (NEGATIVE) Urine Nitrite (NEGATIVE) Urine Bilirubin (NEGATIVE) Urine Urobilinogen (0.2-1.0) E.U./dL Ur Leukocyte Esterase (NEGATIVE) 05/05/20 Range/Units 16:40 WBC (4.0-11.0) K/uL RBC (4.50-6.50) M/uL Hgb (13.0-18.0) g/dL Hct (40.0-54.0) % MCV (76-96) fL MCH (27.0-32.0) pg MCHC (31.0-35.0) g/dL RDW (11.0-16.0) % Plt Count (150-400) K/uL MPV (6.0-10.0) fL Neut % (Auto) (45.0-70.0) % Lymph % (Auto) (20.0-40.0) % Barry % (Auto) (3.0-10.0) % Eos % (Auto) (1.0-5.0) % Baso % (Auto) (0.0-0.5) % Neut # (Auto) (2.00-7.50) K/uL Lymph # (Auto) (1.50-4.00) K/uL Barry # (Auto) (0.20-0.80) K/uL Eos # (Auto) (0.04-0.40) K/uL Baso # (Auto) (0.02-0.10) K/uL Sodium (136-145) mmol/L Potassium (3.5-5.1) mmol/L Chloride (98-107) mmol/L Carbon Dioxide (21.0-32.0) mmol/L Anion Gap (5.0-15.0) mmol/L BUN (8-26) mg/dL Creatinine (0.70-1.30) mg/dL Est Cr Clr Drug Dosing Estimated GFR (MDRD) (>60) MLS/MIN BUN/Creatinine Ratio (6-25) Glucose (74-100) mg/dL Lactic Acid (0.4-2.0) mmol/L Calcium (8.5-10.1) mg/dL Total Bilirubin (0.0-1.0) mg/dL AST (15-37) U/L ALT (12-78) U/L Alkaline Phosphatase (46-116) U/L Troponin I (0.000-0.060) ng/mL Total Protein (6.4-8.2) g/dL Albumin (3.4-5.0) g/dL Globulin (2.2-4.2) g/dL Albumin/Globulin Ratio (0.8-2.0) Urine Color Yellow Urine Appearance Clear (CLEAR) Urine pH 5.0 (5.0-8.0) Ur Specific Charlton 1.015 (1.003-1.030) Urine Protein Negative (NEGATIVE) mg/dL Urine Glucose (UA) Negative (NEGATIVE) mg/dL Urine Ketones Negative (NEGATIVE) mg/dL Urine Occult Blood Negative (NEGATIVE) Urine Nitrite Negative (NEGATIVE) Urine Bilirubin Negative (NEGATIVE) Urine Urobilinogen 0.2 (0.2-1.0) E.U./dL Ur Leukocyte Esterase Negative (NEGATIVE) Meds: Medications Discontinued Medications Generic Name Dose Route Start Last Admin Trade Name Freq PRN Reason Stop Dose Admin Al Hydroxide/Mg Hydroxide 30 ml 05/05/20 15:50 05/05/20 15:59 Gi Cocktail PO 05/05/20 15:51 30 ml ONETIME ONE Administration Cyclobenzaprine HCl 10 mg 05/05/20 16:25 05/05/20 16:27 Flexeril PO 05/05/20 16:26 10 mg ONETIME ONE Administration Sodium Chloride 1,000 mls @ 1,000 mls/hr 05/05/20 18:00 05/05/20 17:45 Normal Saline IV 05/05/20 18:59 1,000 mls/hr .BOLUS ONE Administration Lorazepam 0.5 mg 05/05/20 16:24 05/05/20 16:27 Ativan PO 05/05/20 16:25 0.5 mg ONETIME ONE Administration Metoprolol Tartrate 25 mg 05/05/20 15:49 05/05/20 15:58 Lopressor PO 05/05/20 15:50 25 mg ONETIME ONE Administration Departure - Departure Time of Disposition: 20:00 Disposition: Home, Self-Care 01 Clinical Impression: Muscle spasm, Schizophrenia, chronic with acute exacerbation - Discharge Information Care Plan Goals: The ER provider has sent you home on Cyclobenzaprine 10mg. You are to take 1 tablet daily as needed for muscle spasms. Please follow up with your primary care physician. Sepsis Event Note (ED) - Evaluation Sepsis Screening Result: No Definite Risk - Focused Exam Vital Signs: Vital Signs Temp Pulse Pulse Resp BP BP Pulse Ox 05/05/20 19:39 97.4 F 88 18 125/82 98 05/05/20 16:18 97.8 F 123 H 18 144/93 H 05/05/20 15:58 124 H 143/96 H - Problem List & Annotations (1) Muscle spasm SNOMED Code(s): 85090834 Code(s): M62.838 - OTHER MUSCLE SPASM Status: Acute Priority: Medium Onset Date: ~05/05/20 (2) Palpitation SNOMED Code(s): 92043286 Code(s): R00.2 - PALPITATIONS Status: Acute Priority: Medium Onset Date: ~05/05/20 - My Orders Last 24 Hours: My Active Orders 05/05/20 15:44 CXR [Chest 1V Frontal] [CR] Stat - Assessment/Plan Last 24 Hours: My Active Orders 05/05/20 15:44 CXR [Chest 1V Frontal] [CR] Stat
--- NOTE | 2020-05-06 07:16 | CR ---
Date of Service: 05/05/20 Clinical Data: shortness of breath AP CHEST: No priors. The heart size is normal. The lungs are clear. No pneumothorax. No pleural effusions. No evidence of acute intrathoracic disease. [id number] [facility]
== END 2020-05-05 19:53 | disposition home or self-care (01) ==
LOC: LB.ED 15:13
DX: F20.9 Schizophrenia, unspecified (principal); M62.838 Other muscle spasm; K21.9 Gastro-esophageal reflux disease without esophagitis; E11.9 Type 2 diabetes mellitus without complications; Z88.0 Allergy status to penicillin; Z79.899 Other long term (current) drug therapy; Z79.84 Long term (current) use of oral hypoglycemic drugs
CPT/HCPCS: 36415; 71045; 80053; 81003; 83605; 84484; 85025; 93005; 99285; A0425; A0429; A9270; J7030; 99283

== ENCOUNTER 2020-12-23 08:42 | Emergency (ER) | payer MEDICARE ==
[2020-12-23] MEDS: Aspirin 81 MG Tab.Chew PO ONE (08:45)
[2020-12-23] MEDS ORDERED: Sodium Chloride 0.9% 10 ML Syringe FLUSH PRN ×2 (08:45→08:48)
--- NOTE | 2020-12-23 08:54 | EDM.PDOC ---
ED HPI GENERAL MEDICAL PROBLEM - General Chief Complaint: Chest Pain Stated Complaint: chest pain Time Seen by Provider: 12/23/20 08:45 Source of Information: Reports: Patient, EMS History Limitations: Reports: No Limitations - History of Present Illness INITIAL COMMENTS - FREE TEXT/NARRATIVE: 65-year-old male presents the ED via EMS. Chief complaint of chest discomfort. Patient awoke with the acute pain at approximately 7 AM pain would subside and then return patient states that he had 3 bouts of chest pain this morning.. Patient describes the pain as a tight stressful feeling midline substernal. Patient denies anything being palliative, or provocative. Patient gives his pain severity index of 9/10 on the pain scale, patient elaborates stating that this is the worst his chest pain is ever been. Patient is positive for no appetite this morning, nausea without vomiting, diaphoresis, hot flushing feeling, shortness of breath. Patient negative for loss of conscio usness/syncope, vomiting, vertigo, blurred vision, headache, constipation/diarrhea, change in urinary frequency, smell, odor. - Related Data Allergies Allergy/AdvReac Type Severity Reaction Status Date / Time Penicillins Allergy Unknown Edema Verified 05/05/20 15:33 Home Meds: Home Meds allopurinoL [Zyloprim] 200 mg PO BID 07/25/19 [History] Omeprazole 40 mg PO DAILY 08/27/19 [History] metFORMIN HCl [Metformin HCl] 1 tab PO DAILY 09/20/19 [History] Cyclobenzaprine [Flexeril] 10 mg PO TID PRN 12/23/20 [History] Ferrous Sulfate [Iron] 325 mg PO DAILY #30 tablet 12/23/20 [Rx] Gabapentin [Neurontin] 600 mg PO TID 12/23/20 [History] Levothyroxine [Synthroid] 50 mcg PO ACBREAKFAST 12/23/20 [History] Meclizine [Antivert] 25 mg PO Q6H PRN 12/23/20 [History] Methotrexate 2.5 mg PO Q7D 12/23/20 [History] Pyridoxine HCl (Vitamin B6) [Pyridoxine HCl] 50 mg PO DAILY 30 Days #30 tablet 12/23/20 [Rx] QUEtiapine [SEROquel] 100 mg PO 12/23/20 [History] Rosuvastatin [Crestor] 10 mg PO DAILY 12/23/20 [History] Zolpidem [Ambien] 5 mg PO BEDTIME PRN 12/23/20 [History] allopurinoL [Zyloprim] 300 mg PO BID 12/23/20 [History] glipiZIDE [Glipizide Xl] 10 mg PO 12/23/20 [History] Past Medical History HEENT History: Reports: Cataract, Hard of Hearing, Impaired Vision Other HEENT History: Has had several times where he has or felt like he has had food lodged in esophagus, this time he could not get it down Cardiovascular History: Reports: Other (See Below) Other Cardiovascular History: chest wall pain Gastrointestinal History: Reports: Gastritis, GERD Other Gastrointestinal History: possible gastric stricture, hiatal hernia Musculoskeletal History: Reports: Arthritis, Neck Pain, Chronic, Other (See Below) Other Musculoskeletal History: left arm surg states deficiet was from injury to neck, has muscles spasms, has had head injury and states has had spasms since then (20 years Neurological History: Reports: Brain Injury, Other (See Below) Other Neuro History: Patient is nervous and is anxious, head injury 20 years ago Psychiatric History: Reports: Schizophrenia Other Psychiatric History: Pt states he has taken himself off all his psychiatric medications Endocrine/Metabolic History: Reports: Diabetes, Type II - Infectious Disease History Infectious Disease History: Reports: Chicken Pox, Measles, Mumps - Past Surgical History Neurological Surgical History: Reports: C-Spine Social & Family History - Family History Family Medical History: No Pertinent Family History - Caffeine Use Caffeine Use: Reports: None ED ROS GENERAL - Review of Systems Review Of Systems: Comprehensive ROS is negative, except as noted in HPI. HEENT: Reports: Other (Tingling of the tongue and lips, scaling and cracking at the corners of his mouth) Respiratory: Denies: Cough GI/Abdominal: Reports: No Symptoms : Reports: No Symptoms Musculoskeletal: Reports: No Symptoms Skin: Reports: No Symptoms ED EXAM, GENERAL - Physical Exam Exam: See Below Free Text/Narrative:: 65-year-old male presented to the ED. On a stretcher via EMS. Patient is alert and oriented 3/3 GCS 4 5 6, skin is pink warm and dry, patient speaking in full sentences, no apparent distress. Exam Limited By: No Limitations General Appearance: Alert, WD/WN, No Apparent Distress Eye Exam: Bilateral Eye: EOMI, PERRL Ears: Normal External Exam, Hearing Grossly Normal Nose: No Blood. No: Nasal Deformity, Nasal Drainage, Nasal Flaring Throat/Mouth: Normal Voice, No Airway Compromise, Other (chelitis, extremely poor dentition) Head: Atraumatic, Normocephalic Neck: Normal Inspection, Other (No JVD trachea midline no subcutaneous air) Respiratory/Chest: No Respiratory Distress, Lungs Clear, Normal Breath Sounds, No Accessory Muscle Use, Chest Non-Tender Cardiovascular: Normal Peripheral Pulses, Regular Rate, Rhythm, No Edema, No Gallop, No JVD, No Murmur, No Rub Peripheral Pulses: 2+: Radial (L), Radial (R) GI/Abdominal: Soft, Non-Tender, No Organomegaly, No Distention, No Mass Extremities: Normal Inspection, No Pedal Edema Neurological: Alert, Oriented, Normal Cognition Psychiatric: Normal Affect, Normal Mood Skin Exam: Warm, Dry, Intact, Normal Color, No Rash #1 Interpretation EKG Date: 12/23/20 #2 Interpretation EKG Date: 12/23/20 Course - Vital Signs Last Recorded V/S: Last Vital Signs Temp 97.6 F 12/23/20 08:45 Pulse 67 12/23/20 08:45 Resp 16 12/23/20 08:45 BP 128/68 12/23/20 08:45 Pulse Ox 99 12/23/20 08:45 - Orders/Labs/Meds Orders: Active Orders 24 hr Category Date Time Status IRON AND TIBC Stat Lab 12/23/20 08:50 Received TROPONIN I [CHEM] Routine Lab 12/23/20 12:00 Ordered UA W/SANTIAGO RFLX IF INDICATED [URIN] Stat Lab 12/23/20 08:40 Ordered VITAMIN B1 (THIAMINE), BLOOD Stat Lab 12/23/20 09:37 Ordered VITAMIN B12 Stat Lab 12/23/20 08:50 Received VITAMIN B6, PLASMA Stat Lab 12/23/20 08:50 Received Sodium Chloride 0.9% [Saline Flush] Med 12/23/20 08:45 Active 10 ml FLUSH ASDIRECTED PRN Sodium Chloride 0.9% [Saline Flush] Med 12/23/20 08:48 Active 10 ml FLUSH ASDIRECTED PRN Saline Lock Insert [OM.PC] Routine Oth 12/23/20 08:48 Ordered Medication Orders Sodium Chloride (Sodium Chloride 0.9% 10 Ml Syringe) 10 ml FLUSH ASDIRECTED PRN PRN Reason: Keep Vein Open Sodium Chloride (Sodium Chloride 0.9% 10 Ml Syringe) 10 ml FLUSH ASDIRECTED PRN PRN Reason: Keep Vein Open Labs: Laboratory Tests 12/23/20 12/23/20 12/23/20 Range/Units 08:50 08:50 08:50 WBC 5.8 D (4.0-11.0) K/uL RBC 3.99 L (4.50-6.50) M/uL Hgb 9.1 L D (13.0-18.0) g/dL Hct 31.0 L D (40.0-54.0) % MCV 78 (76-96) fL MCH 22.8 L D (27.0-32.0) pg MCHC 29.4 L (31.0-35.0) g/dL RDW 16.1 H (11.0-16.0) % Plt Count 216 D (150-400) K/uL MPV 10.5 H (6.0-10.0) fL Neut % (Auto) 75.3 H (45.0-70.0) % Lymph % (Auto) 14.9 L (20.0-40.0) % Wise % (Auto) 6.9 (3.0-10.0) % Eos % (Auto) 2.4 (1.0-5.0) % Baso % (Auto) 0.5 (0.0-0.5) % Neut # (Auto) 4.39 (2.00-7.50) K/uL Lymph # (Auto) 0.87 L (1.50-4.00) K/uL Wise # (Auto) 0.40 (0.20-0.80) K/uL Eos # (Auto) 0.14 (0.04-0.40) K/uL Baso # (Auto) 0.03 (0.02-0.10) K/uL Sodium 142 (136-145) mmol/L Potassium 4.2 (3.5-5.1) mmol/L Chloride 109 H (98-107) mmol/L Carbon Dioxide 25.9 (21.0-32.0) mmol/L Anion Gap 11.3 (5.0-15.0) mmol/L BUN 12 D (8-26) mg/dL Creatinine 1.20 D (0.70-1.30) mg/dL Est Cr Clr Drug Dosing TNP Estimated GFR (MDRD) > 60 (>60) MLS/MIN BUN/Creatinine Ratio 10.0 (6-25) Glucose 96 D (74-100) mg/dL Calcium 8.4 L (8.5-10.1) mg/dL Total Bilirubin 0.5 (0.0-1.0) mg/dL AST 43 H (15-37) U/L ALT 37 (12-78) U/L Alkaline Phosphatase 100 (46-116) U/L Troponin I < 0.017 (0.000-0.060) ng/mL B-Natriuretic Peptide 105 (0-125) pg/mL Total Protein 7.1 (6.4-8.2) g/dL Albumin 3.4 (3.4-5.0) g/dL Globulin 3.7 (2.2-4.2) g/dL Albumin/Globulin Ratio 0.9 (0.8-2.0) SARS-CoV-2 RNA ([facility]) (NEGATIVE) 12/23/20 Range/Units 09:08 WBC (4.0-11.0) K/uL RBC (4.50-6.50) M/uL Hgb (13.0-18.0) g/dL Hct (40.0-54.0) % MCV (76-96) fL MCH (27.0-32.0) pg MCHC (31.0-35.0) g/dL RDW (11.0-16.0) % Plt Count (150-400) K/uL MPV (6.0-10.0) fL Neut % (Auto) (45.0-70.0) % Lymph % (Auto) (20.0-40.0) % Wise % (Auto) (3.0-10.0) % Eos % (Auto) (1.0-5.0) % Baso % (Auto) (0.0-0.5) % Neut # (Auto) (2.00-7.50) K/uL Lymph # (Auto) (1.50-4.00) K/uL Wise # (Auto) (0.20-0.80) K/uL Eos # (Auto) (0.04-0.40) K/uL Baso # (Auto) (0.02-0.10) K/uL Sodium (136-145) mmol/L Potassium (3.5-5.1) mmol/L Chloride (98-107) mmol/L Carbon Dioxide (21.0-32.0) mmol/L Anion Gap (5.0-15.0) mmol/L BUN (8-26) mg/dL Creatinine (0.70-1.30) mg/dL Est Cr Clr Drug Dosing Estimated GFR (MDRD) (>60) MLS/MIN BUN/Creatinine Ratio (6-25) Glucose (74-100) mg/dL Calcium (8.5-10.1) mg/dL Total Bilirubin (0.0-1.0) mg/dL AST (15-37) U/L ALT (12-78) U/L Alkaline Phosphatase (46-116) U/L Troponin I (0.000-0.060) ng/mL B-Natriuretic Peptide (0-125) pg/mL Total Protein (6.4-8.2) g/dL Albumin (3.4-5.0) g/dL Globulin (2.2-4.2) g/dL Albumin/Globulin Ratio (0.8-2.0) SARS-CoV-2 RNA ([facility]) Negative (NEGATIVE) Meds: Medications Generic Name Dose Route Start Last Admin Trade Name Channing PRN Reason Stop Dose Admin Sodium Chloride 10 ml 12/23/20 08:48 Sodium Chloride 0.9% 10 Ml Syringe FLUSH ASDIRECTED PRN Keep Vein Open Sodium Chloride 10 ml 12/23/20 08:45 Sodium Chloride 0.9% 10 Ml Syringe FLUSH ASDIRECTED PRN Keep Vein Open Discontinued Medications Generic Name Dose Route Start Last Admin Trade Name Freq PRN Reason Stop Dose Admin Aspirin 324 mg 12/23/20 08:51 12/23/20 08:45 Aspirin 81 Mg Tab.Chew PO 12/23/20 08:52 324 mg ONETIME ONE Administration Ferrous Sulfate 325 mg 12/23/20 11:37 12/23/20 12:03 Ferrous Sulfate 325 Mg Tab PO 12/23/20 11:38 325 mg NOW ONE Administration Sodium Chloride 1,000 mls @ 999 mls/hr 12/23/20 09:27 12/23/20 09:00 Normal Saline IV 12/23/20 10:27 999 mls/hr .BOLUS ONE Administration Ondansetron HCl 4 mg 12/23/20 09:15 12/23/20 09:23 Ondansetron 4 Mg/2 Ml Sdv IVPUSH 12/23/20 09:16 4 mg ONETIME ONE Administration Ondansetron HCl Confirm 12/23/20 09:33 Ondansetron 4 Mg/2 Ml Sdv Administered 12/23/20 09:34 Dose 4 mg .ROUTE .STK-MED ONE Pyridoxine HCl 50 mg 12/23/20 11:39 12/23/20 12:03 Vitamin B6-Pyridoxine 50 Mg Tab PO 12/23/20 11:40 50 mg NOW STA Administration Departure - Departure Time of Disposition: 13:05 Disposition: Home, Self-Care 01 Condition: Good Clinical Impression: Weakness, Dizziness, Atypical chest pain Prescriptions: Famotidine 20 mg PO DAILY #30 tab Ferrous Sulfate [Iron] 325 mg PO DAILY #30 tablet Pyridoxine HCl (Vitamin B6) [Pyridoxine HCl] 50 mg PO DAILY 30 Days #30 tablet Instructions: Fatigue, Nonspecific Chest Pain, Adult, Weakness, [id number] Referrals: PCP,None [Primary Care Provider] - Forms: ED Department Discharge Additional Instructions: Follow-up with Chanel Miranda nurse practitioner Balaji this week. Backup prescriptions at the pharmacy today. Sepsis Event Note (ED) - Focused Exam Vital Signs: Vital Signs Temp Pulse Resp BP Pulse Ox 12/23/20 08:45 97.6 F 67 16 128/68 99 - My Orders Last 24 Hours: My Active Orders 12/23/20 08:40 UA W/SANTIAGO RFLX IF INDICATED [URIN] Stat 12/23/20 08:45 Sodium Chloride 0.9% [Saline Flush] 10 ml FLUSH ASDIRECTED PRN 12/23/20 08:50 IRON AND TIBC Stat VITAMIN B12 Stat VITAMIN B6, PLASMA Stat 12/23/20 09:37 VITAMIN B1 (THIAMINE), BLOOD Stat 12/23/20 12:00 TROPONIN I [CHEM] Routine - Assessment/Plan Last 24 Hours: My Active Orders 12/23/20 08:40 UA W/SANTIAGO RFLX IF INDICATED [URIN] Stat 12/23/20 08:45 Sodium Chloride 0.9% [Saline Flush] 10 ml FLUSH ASDIRECTED PRN 12/23/20 08:50 IRON AND TIBC Stat VITAMIN B12 Stat VITAMIN B6, PLASMA Stat 12/23/20 09:37 VITAMIN B1 (THIAMINE), BLOOD Stat 12/23/20 12:00 TROPONIN I [CHEM] Routine Assessment:: Assessment and plan: EMS report, history, exam, saline lock, EKG, CBC, CMP, UA (neg), troponin, chest x-ray, rectal exam Hemoccult test positive, troponin, send out laboratory tests for iron studies, vitamin B levels. Troponins were both negative. contacted patient's primary care provider Chanel Miranda at [facility] in [facility] we discussed patient's course in the ER and his need for colonoscopy and endoscopy which she said she would arrange on her end and that she would reach out to the patient. We also discussed initiating empiric treatment for iron anemia, vitamin B deficiency that she would manage outpatient. Patient was given 1000 cc of normal saline, and Zofran for nausea. Plan is to have close follow-up with primary care provider to address his chronic conditions. Patient was given prescriptions for the following to shrimp picker at the pharmacy vitamin B supplementation, ferrous sulfate supplementation, and an H2 rachel famotidine. All questions were answered to patient satisfaction, patient understood and agreed to treatment plan, patient discharged in stable condition.
[2020-12-23] MEDS: Sodium Chloride 0.9% 1,000 ML IV ONE (09:00)
[2020-12-23] MEDS: Ondansetron 4 MG/2 ML SDV IVPUSH ONE (09:23)
[2020-12-23] MEDS: Ondansetron 4 MG/2 ML SDV ONE (09:33)
--- NOTE | 2020-12-23 09:44 | CR ---
Date of Service: 12/23/20 Clinical Data: chest pain AP CHEST: Comparison is made to a prior exam dated 05/05/20. The heart size is normal. The lungs are clear. No pneumothorax. No pleural effusions. There is degenerative disk disease at multiple levels in the thoracic spine. No evidence of acute intrathoracic disease. [id number] [facility]
[2020-12-23 10:06] VITALS: BP 128/68; PULSE 67
[2020-12-23] MEDS: Vitamin B6-pyridOXINE 50 MG Tab PO STA (12:03)
[2020-12-23] MEDS: Ferrous Sulfate 325 MG Tab PO ONE (12:03)
[2020-12-25 04:12] LABS: IRON BIND.CAP.(TIBC) 446 ug/dL (250-450); IRON SATURATION 4 % (15-55); IRON, SERUM 18 ug/dL (38-169); UIBC 428 ug/dL (111-343)
== END 2020-12-23 13:20 | disposition home or self-care (01) ==
LOC: LB.ED 08:42
DX: R07.89 Other chest pain (principal); R53.1 Weakness; R42 Dizziness and giddiness; E11.9 Type 2 diabetes mellitus without complications; Z88.0 Allergy status to penicillin; Z79.84 Long term (current) use of oral hypoglycemic drugs; Z79.899 Other long term (current) drug therapy; Z20.822 Contact with and (suspected) exposure to COVID-19
CPT/HCPCS: 36415; 71045; 80053; 81003; 82607; 83540; 83550; 83880; 84207; 84425; 84484; 85025; 93005; 96374; 99285-25; A0425; A0429; A9270-GY; J2405; J7030; U0002

== ENCOUNTER 2021-02-01 15:30 | Emergency (ER) | payer MEDICARE ==
[2021-02-01 15:42] VITALS: BP 183/87; PULSE 91
--- NOTE | 2021-02-01 16:11 | EDM.PDOC ---
ED HPI GENERAL MEDICAL PROBLEM - General Chief Complaint: ENT Problem Stated Complaint: mouth pain Time Seen by Provider: 02/01/21 15:50 Source of Information: Reports: Patient, RN Notes Reviewed History Limitations: Reports: No Limitations - History of Present Illness INITIAL COMMENTS - FREE TEXT/NARRATIVE: This patient presents to the emergency department with a variety of concerns today. He states that he has sores in his mouth that are quite painful. They started about 3 days ago when he was eating some crackers. He has not had a fever with this, denies other concerns or complaints related to these. He also states that he has "bright green" pee and abdominal pain just before he urinates. He states he does not have pain with urination, just prior to urination. He also states that he has an infection in his thumb. Oral/Mouth Pain Score (Numeric/FACES): 10 - Related Data Allergies Allergy/AdvReac Type Severity Reaction Status Date / Time Penicillins Allergy Unknown Edema Verified 02/01/21 15:38 Home Meds: Home Meds allopurinoL [Zyloprim] 200 mg PO BID 07/25/19 [History] Omeprazole 40 mg PO DAILY 08/27/19 [History] metFORMIN HCl [Metformin HCl] 1 tab PO DAILY 09/20/19 [History] Cyclobenzaprine [Flexeril] 10 mg PO TID PRN 12/23/20 [History] Ferrous Sulfate [Iron] 325 mg PO DAILY #30 tablet 12/23/20 [Rx] Gabapentin [Neurontin] 600 mg PO TID 12/23/20 [History] Levothyroxine [Synthroid] 50 mcg PO ACBREAKFAST 12/23/20 [History] Meclizine [Antivert] 25 mg PO Q6H PRN 12/23/20 [History] Methotrexate 2.5 mg PO Q7D 12/23/20 [History] Pyridoxine HCl (Vitamin B6) [Pyridoxine HCl] 50 mg PO DAILY 30 Days #30 tablet 12/23/20 [Rx] QUEtiapine [SEROquel] 100 mg PO 12/23/20 [History] Rosuvastatin [Crestor] 10 mg PO DAILY 12/23/20 [History] Zolpidem [Ambien] 5 mg PO BEDTIME PRN 12/23/20 [History] allopurinoL [Zyloprim] 300 mg PO BID 12/23/20 [History] glipiZIDE [Glipizide Xl] 10 mg PO 12/23/20 [History] Nystatin 5 ml PO QID 7 Days #140 ml 02/01/21 [Rx] Past Medical History HEENT History: Reports: Cataract, Hard of Hearing, Impaired Vision Other HEENT History: Has had several times where he has or felt like he has had food lodged in esophagus, this time he could not get it down Cardiovascular History: Reports: Other (See Below) Other Cardiovascular History: chest wall pain Other Respiratory History: Pt states he has SOB with exertion Gastrointestinal History: Reports: Gastritis, GERD Other Gastrointestinal History: possible gastric stricture, hiatal hernia positive occult blood Musculoskeletal History: Reports: Arthritis, Neck Pain, Chronic, Other (See Below) Other Musculoskeletal History: left arm surg states deficiet was from injury to neck, has muscles spasms, has had head injury and states has had spasms since then (20 years Neurological History: Reports: Brain Injury, Other (See Below) Other Neuro History: Patient is nervous and is anxious, head injury 20 years ago Psychiatric History: Reports: Schizophrenia Other Psychiatric History: Pt states he has taken himself off all his psychiatric medications Endocrine/Metabolic History: Reports: Diabetes, Type II - Infectious Disease History Infectious Disease History: Reports: Chicken Pox, Measles, Mumps - Past Surgical History Neurological Surgical History: Reports: C-Spine Social & Family History - Family History Family Medical History: No Pertinent Family History - Caffeine Use Caffeine Use: Reports: None ED ROS ENT - Review of Systems Review Of Systems: See Below Constitutional: Denies: Fever, Weakness, Decreased Appetite HEENT: Denies: Dental Pain, Ear Discharge, Ear Pain, Eye Discharge, Eye Pain, Th roat Pain Respiratory: Denies: Shortness of Breath, Cough Cardiovascular: Denies: Chest Pain, Lightheadedness GI/Abdominal: Reports: Other (Lower pain just before he urinates. It is resolved by the time he urinates.) : Denies: Dysuria, Frequency, Urgency Musculoskeletal: Reports: No Symptoms Skin: Reports: Other (Erythematous area near thumbnail) Neurological: Reports: No Symptoms Psychiatric: Denies: Agitation, Anxiety ED EXAM, ENT - Physical Exam Exam: See Below Exam Limited By: No Limitations General Appearance: Alert, No Apparent Distress Ears: Normal External Exam Nose: Normal Inspection Mouth/Throat: Other (White plaques to buccal membranes of mouth.) Head: Atraumatic ( No open lesions noted.), Normocephalic Neck: Normal Inspection Respiratory/Chest: No Respiratory Distress, No Accessory Muscle Use Extremities: Normal Inspection, Other (Small erythematous lesion at edge of left thumbnail) Course - Vital Signs Last Recorded V/S: Last Vital Signs Temp 36.6 C 02/01/21 15:39 Pulse 91 02/01/21 15:39 Resp 20 02/01/21 15:39 BP 183/87 H 02/01/21 15:39 Pulse Ox 98 02/01/21 15:39 - Re-Assessments/Exams Free Text/Narrative Re-Assessment/Exam: 02/01/21 16:19 This patient presents to the emergency department for evaluation of multiple minor concerns. He does have some mild plaques that are most consistent with oral candidiasis. A prescription was sent to [facility] for nystatin suspension to be used 4 times a day. In the meantime he can use ibuprofen for discomfort. He appears to have trimmed a hangnail on his thumb and has a bit of redness there. A urine screen was negative. I did review the results of this with him. Departure - Departure Time of Disposition: 16:15 Disposition: Home, Self-Care 01 Condition: Good Clinical Impression: Oral candidiasis, Concern about urinary tract disease without diagnosis - Discharge Information Prescriptions: Nystatin 5 ml PO QID 7 Days #140 ml Forms: ED Department Discharge Additional Instructions: technology support analyst your prescription from [facility] on Wednesday. Put one teaspoon of the medicine in your most and swish it around the sores that you have. In the meantime, you can use ibuprofen, 3 pills every 8 hours (3 times per day) for the pain until you picking tech your medicine. Your urine is normal today. There is no problem with your urine or your bladder. I showed you the results and everything was fine. Use the antibiotic ointment I gave you on your thumb. Sepsis Event Note (ED) - Evaluation Sepsis Screening Result: No Definite Risk - Focused Exam Vital Signs: Vital Signs Temp Pulse Resp BP Pulse Ox 02/01/21 15:39 36.6 C 91 20 183/87 H 98
== END 2021-02-01 16:15 | disposition home or self-care (01) ==
LOC: LB.ED 15:30
DX: B37.0 Candidal stomatitis (principal); K21.9 Gastro-esophageal reflux disease without esophagitis; E11.9 Type 2 diabetes mellitus without complications; Z79.84 Long term (current) use of oral hypoglycemic drugs; Z88.0 Allergy status to penicillin; Z79.899 Other long term (current) drug therapy
CPT/HCPCS: 99283

== ENCOUNTER 2021-02-04 11:23 | Emergency (ER) | payer MEDICARE ==
[2021-02-04 14:20] VITALS: BP 151/89; PULSE 90
--- NOTE | 2021-02-04 14:20 | EDM.PDOC ---
ED HPI GENERAL MEDICAL PROBLEM - General Chief Complaint: Abdominal Pain Stated Complaint: SORES IN MOUTH Time Seen by Provider: 02/04/21 14:10 Source of Information: Reports: Patient History Limitations: Reports: No Limitations - History of Present Illness INITIAL COMMENTS - FREE TEXT/NARRATIVE: This patient presents to the emergency department for evaluation of mouth sores. He was seen less than 48 hours ago for the same concern and diagnosed with oral candidiasis. He was prescribed nystatin suspension which was started yesterday because of pharmacy closure on Wednesday. He states that they have gotten worse even though he is using the medicine is here today because he wants a shot of the medicine. He states that he has not had anything to eat in 7 days and has not had anything to drink in 5 days. He had urine output just before he arrived to the emergency department. He is also complaining of abdominal pain which was a concern on Wednesday as well. He denies any chest pain, nausea, vomiting, diarrhea. mouth Pain Score (Numeric/FACES): 10 - Related Data Allergies Allergy/AdvReac Type Severity Reaction Status Date / Time Penicillins Allergy Unknown Edema Verified 02/04/21 14:09 Home Meds: Home Meds allopurinoL [Zyloprim] 200 mg PO BID 07/25/19 [History] Omeprazole 40 mg PO DAILY 08/27/19 [History] metFORMIN HCl [Metformin HCl] 1 tab PO DAILY 09/20/19 [History] Cyclobenzaprine [Flexeril] 10 mg PO TID PRN 12/23/20 [History] Ferrous Sulfate [Iron] 325 mg PO DAILY #30 tablet 12/23/20 [Rx] Gabapentin [Neurontin] 600 mg PO TID 12/23/20 [History] Levothyroxine [Synthroid] 50 mcg PO ACBREAKFAST 12/23/20 [History] Meclizine [Antivert] 25 mg PO Q6H PRN 12/23/20 [History] Methotrexate 2.5 mg PO Q7D 12/23/20 [History] Pyridoxine HCl (Vitamin B6) [Pyridoxine HCl] 50 mg PO DAILY 30 Days #30 tablet 12/23/20 [Rx] QUEtiapine [SEROquel] 100 mg PO 12/23/20 [History] Rosuvastatin [Crestor] 10 mg PO DAILY 12/23/20 [History] Zolpidem [Ambien] 5 mg PO BEDTIME PRN 12/23/20 [History] allopurinoL [Zyloprim] 300 mg PO BID 12/23/20 [History] glipiZIDE [Glipizide Xl] 10 mg PO 12/23/20 [History] Nystatin 5 ml PO QID 7 Days #140 ml 02/01/21 [Rx] Past Medical History HEENT History: Reports: Cataract, Hard of Hearing, Impaired Vision Other HEENT History: Has had several times where he has or felt like he has had food lodged in esophagus, this time he could not get it down Cardiovascular History: Reports: Other (See Below) Other Cardiovascular History: chest wall pain Other Respiratory History: Pt states he has SOB with exertion Gastrointestinal History: Reports: Gastritis, GERD Other Gastrointestinal History: possible gastric stricture, hiatal hernia positive occult blood Musculoskeletal History: Reports: Arthritis, Neck Pain, Chronic, Other (See Below) Other Musculoskeletal History: left arm surg states deficiet was from injury to neck, has muscles spasms, has had head injury and states has had spasms since then (20 years Neurological History: Reports: Brain Injury, Other (See Below) Other Neuro History: Patient is nervous and is anxious, head injury 20 years ago Psychiatric History: Reports: Schizophrenia Other Psychiatric History: Pt states he has taken himself off all his psychiatric medications Endocrine/Metabolic History: Reports: Diabetes, Type II - Infectious Disease History Infectious Disease History: Reports: Chicken Pox, Measles, Mumps - Past Surgical History Neurological Surgical History: Reports: C-Spine Social & Family History - Family History Family Medical History: No Pertinent Family History - Caffeine Use Caffeine Use: Reports: None ED ROS GENERAL - Review of Systems Review Of Systems: See Below Constitutional: Denies: Fever, Decreased Appetite HEENT: Reports: Other (Mouth sores. States he is unable to swallow) Respiratory: Denies: Shortness of Breath, Cough Cardiovascular: Denies: Chest Pain Musculoskeletal: Reports: No Symptoms Skin: Reports: No Symptoms Neurological: Reports: No Symptoms (I love how annoyed people are that are walking through) ED EXAM, GI/ABD - Physical Exam Exam: See Below Exam Limited By: No Limitations General Appearance: Alert, No Apparent Distress, Anxious, Other (Mucous memb ranes moist) Eyes: Bilateral: Normal Appearance Ears: Normal External Exam Nose: Normal Inspection Throat/Mouth: No Airway Compromise, Other (White plaques to mucous membranes, buccal membranes and tongue. There is no evidence of plaques in his throat. Patient states he is unable to swallow but was observed swallowing without difficulty.). No: Dysphagia Head: Atraumatic, Normocephalic Neck: Normal Inspection, Full Range of Motion Respiratory/Chest: No Respiratory Distress, Lungs Clear, Normal Breath Sounds, No Accessory Muscle Use Cardiovascular: Regular Rate, Rhythm Neurological: Alert, Oriented Psychiatric: Normal Affect Skin Exam: Warm, Dry, Intact, Normal Color Course - Vital Signs Last Recorded V/S: Last Vital Signs Temp 36.2 C 02/04/21 14:14 Pulse 90 02/04/21 14:19 Resp 16 02/04/21 14:14 BP 151/89 H 02/04/21 14:19 Pulse Ox 99 02/04/21 14:14 - Re-Assessments/Exams Free Text/Narrative Re-Assessment/Exam: 02/04/21 18:08 This patient presents to the emergency department for evaluation of mouth sores. It was a second visit for the same concern and diagnosis is unchanged. He is getting nystatin suspension and states he is using it. He was reminded to continue using it and to use drink clear cool liquids and soft solids. He was encouraged to use ibuprofen for discomfort as well and follow-up with his primary care provider as needed. The patient was stable at the time of discharge. Departure - Departure Time of Disposition: 14:25 Disposition: Home, Self-Care 01 Condition: Good Clinical Impression: Oral candidiasis, Abdominal pain - Discharge Information *PRESCRIPTION DRUG MONITORING PROGRAM REVIEWED*: Not Applicable *COPY OF PRESCRIPTION DRUG MONITORING REPORT IN PATIENT [place]: Not Applicable Instructions: Oral Thrush, Adult, [id number] Referrals: PCP,None [Primary Care Provider] - Forms: ED Department Discharge Additional Instructions: Drink clear liquids that are cold. You can swallow soft foods like yogurt, mashed potatoes, or soup. There is nothing wrong with your throat. Continue to use the medication as previously prescribed. You do not need any other medications right now. Sepsis Event Note (ED) - Evaluation Sepsis Screening Result: No Definite Risk
== END 2021-02-04 14:23 | disposition home or self-care (01) ==
LOC: LB.ED 11:23
DX: B37.0 Candidal stomatitis (principal); R10.9 Unspecified abdominal pain; K21.9 Gastro-esophageal reflux disease without esophagitis; E11.9 Type 2 diabetes mellitus without complications; Z88.0 Allergy status to penicillin; Z79.84 Long term (current) use of oral hypoglycemic drugs; Z79.899 Other long term (current) drug therapy
CPT/HCPCS: 99283

== ENCOUNTER 2021-05-04 09:08 | Emergency (ER) | payer MEDICARE ==
[2021-05-04] MEDS ORDERED: Ondansetron 4 MG/2 ML SDV IM ONE (09:20)
[2021-05-04 09:36] VITALS: BP 152/54; PULSE 68
[2021-05-04] MEDS ORDERED: Meclizine 12.5 MG Tab PO ONE (09:40)
[2021-05-04] MEDS ORDERED: LORazepam 2 MG/ML SDV IM ONE (10:10)
[2021-05-04] MEDS ORDERED: Ondansetron 4 MG Tab.DIS ONE (11:00)
== END 2021-05-04 11:30 | disposition home or self-care (01) ==
LOC: LB.ED 09:08
DX: R42 Dizziness and giddiness (principal); K21.9 Gastro-esophageal reflux disease without esophagitis; E11.9 Type 2 diabetes mellitus without complications; Z88.0 Allergy status to penicillin; Z79.899 Other long term (current) drug therapy; Z79.84 Long term (current) use of oral hypoglycemic drugs
CPT/HCPCS: 82947; 96372; 99283; A0425; A0429; A9270; J2060; J2405; Q0162

== ENCOUNTER 2024-05-03 09:17 | Emergency (ER) | payer MEDICARE ==
[2024-05-03] MEDS ORDERED: Sodium Chloride 0.9% 10 ML Syringe FLUSH PRN (09:30)
[2024-05-03] MEDS: Ondansetron 4 MG/2 ML SDV IVPUSH ONE (09:53)
[2024-05-03] MEDS: diazePAM 5 MG/ML MDV IV ONE (09:54)
[2024-05-03] MEDS: Sodium Chloride 0.9% 1,000 ML IV SCH (09:58)
[2024-05-03 10:09] LABS: ANION GAP 11.4 mmol/L (5.0-15.0); BLOOD UREA NITROGEN,BUN 17 mg/dL (8-26); BUN/CREATININE RATIO 9.8 (6-25); CALCIUM 8.5 mg/dL (8.5-10.1); CHLORIDE,CL 103 mmol/L (98-107); CREATININE 1.74 mg/dL (0.70-1.30); ESTIMATED GFR 41 mL/min (>60); GLUCOSE RANDOM 243 mg/dL (74-100); MAGNESIUM 1.7 mg/dL (1.8-2.4); POTASSIUM,K 3.4 mmol/L (3.5-5.1); SODIUM,NA 138 mmol/L (136-145)
[2024-05-03 10:24] LABS: TROPONIN I HIGH SENSITIVITY < 4.0 pg/ml (<=60.4)
[2024-05-03 10:25] LABS: HEMATOCRIT 39.7 % (40.0-54.0); MEAN CORPUSCULAR HEMOGLOBIN 28.7 pg (27.0-32.0); MEAN CORPUSCULAR HGB CONC 32.7 g/dL (31.0-35.0); MEAN PLATELET VOLUME 11.1 fL (6.0-10.0); RED BLOOD CELL COUNT 4.53 M/uL (4.50-6.50); RED CELL DISTRIBUTION WIDTH 14.8 % (11.0-16.0); WHITE BLOOD CELL COUNT,WBC 6.3 K/uL (4.0-11.0)
[2024-05-03] MEDS: diphenhydrAMINE 50 MG/ML SDV IVPUSH ONE (13:30)
[2024-05-03] MEDS: Prochlorperazine 10 MG/2 ML SDV IVPUSH ONE (13:30)
[2024-05-03] MEDS: diphenhydrAMINE 50 MG/ML SDV ONE (14:48)
[2024-05-03] MEDS: Prochlorperazine 10 MG/2 ML SDV ONE (14:49)
[2024-05-03 16:28] VITALS: BP 147/71; PULSE 63
== END 2024-05-03 14:00 | disposition home or self-care (01) ==
LOC: LB.ED 09:17
DX: R42 Dizziness and giddiness (principal); K21.9 Gastro-esophageal reflux disease without esophagitis; E11.9 Type 2 diabetes mellitus without complications; Z79.899 Other long term (current) drug therapy; Z79.84 Long term (current) use of oral hypoglycemic drugs; Z88.0 Allergy status to penicillin
CPT/HCPCS: 36415; 70450; 80048; 83735; 84484; 85027; 93005; 96361; 96365; 96375; 99284-25; A9270-GY; J0780; J1200; J2405; J3360; J3475; J7030

== ENCOUNTER 2024-08-05 02:15 | Inpatient (IN) | payer MEDICARE ==
[2024-08-05] MEDS: Ondansetron 4 MG/2 ML SDV IVPUSH ONE ×2 (02:24→03:34)
[2024-08-05] MEDS ORDERED: Sodium Chloride 0.9% 10 ML Syringe FLUSH PRN (02:30)
[2024-08-05] MEDS: Sodium Chloride 0.9% 1,000 ML IV SCH ×2 (02:31→22:43)
[2024-08-05] MEDS: diazePAM 10 MG/2 ML Syringe IVPUSH ONE (02:37)
[2024-08-05] MEDS: diphenhydrAMINE 50 MG/ML SDV IVPUSH ONE (02:39)
[2024-08-05] MEDS: diazePAM 5 MG/ML MDV ONE (02:39)
[2024-08-05] MEDS: Morphine 4 MG/ML VIAL IVPUSH ONE (04:35)
[2024-08-05] MEDS: HYDROmorphone 2 MG/ML Syringe IVPUSH ONE (05:14)
[2024-08-05] MEDS: Promethazine 12.5 MG in Sodium Chloride 0.9% 50 ML IV ONE (06:12)
[2024-08-05 08:58] LABS: HEMATOCRIT 36.6 % (40.0-54.0); HEMOGLOBIN 11.7 g/dL (13.0-18.0); MEAN CORPUSCULAR HEMOGLOBIN 28.5 pg (27.0-32.0); MEAN PLATELET VOLUME 10.9 fL (6.0-10.0); RED BLOOD CELL COUNT 4.11 M/uL (4.50-6.50); RED CELL DISTRIBUTION WIDTH 14.7 % (11.0-16.0); WHITE BLOOD CELL COUNT,WBC 7.1 K/uL (4.0-11.0)
[2024-08-05] MEDS: Prochlorperazine 10 MG/2 ML SDV IVPUSH ONE ×2 (09:02→10:52)
[2024-08-05 09:19] LABS: A/G RATIO 0.7 (0.8-2.0); ALBUMIN 3.4 g/dL (3.4-5.0); ANION GAP 15.8 mmol/L (5.0-15.0); BILIRUBIN TOTAL 0.8 mg/dL (0.0-1.0); BUN/CREATININE RATIO 9.7 (6-25); CALCIUM 8.7 mg/dL (8.5-10.1); CARBON DIOXIDE,CO2 25.6 mmol/L (21.0-32.0); CREATININE 1.65 mg/dL (0.70-1.30); EST CRCL DRUG DOSING (CG) 43.73 mL/min; MAGNESIUM 1.7 mg/dL (1.8-2.4); POTASSIUM,K 4.4 mmol/L (3.5-5.1); PROTEIN TOTAL,TP 8.4 g/dL (6.4-8.2); TROPONIN I HIGH SENSITIVITY 7.3 pg/ml (<=60.4)
[2024-08-05] MEDS: Sodium Chloride 0.9% 50 ML SDV FLUSH SCH (09:45)
[2024-08-05] MEDS: Iodixanol 652 MG/ML 100 ML Bottle IV PRN (09:46)
[2024-08-05] MEDS ORDERED: Gabapentin 600 MG Tab PO PRN (10:48)
[2024-08-05] MEDS: Lactated Ringers 1,000 ML IV SCH (10:53)
[2024-08-05] MEDS ORDERED: Glucagon,Human Recombinant 1 MG Vial IM PRN (12:42)
[2024-08-05] MEDS ORDERED: 50% Dextrose in Water 50 ML Syringe IVPUSH PRN (12:42)
[2024-08-05] MEDS ORDERED: QUETIAPINE 100 MG PO SCH (13:00)
[2024-08-05] MEDS: Magnesium Oxide 400 MG Tab PO SCH (13:21)
[2024-08-05] MEDS: Prochlorperazine 10 MG Tab PO SCH (13:21)
[2024-08-05] MEDS: Insulin Lispro 100 Unit/ML 3 ML KwikPen SUBCUT SCH (18:18)
[2024-08-05] MEDS ORDERED: Zolpidem 5 MG Tab PO PRN (20:00)
[2024-08-05] MEDS: Allopurinol 300 MG Tab PO SCH (20:09)
[2024-08-06] MEDS: Pantoprazole 40 MG Tab.CR PO SCH (07:19)
[2024-08-06] MEDS: Rosuvastatin 20 MG Tab PO SCH (07:19)
[2024-08-06 08:36] LABS: ANION GAP 11.7 mmol/L (5.0-15.0); BUN/CREATININE RATIO 12.8 (6-25); CALCIUM 8.4 mg/dL (8.5-10.1); CARBON DIOXIDE,CO2 27.6 mmol/L (21.0-32.0); CREATININE 1.48 mg/dL (0.70-1.30); EST CRCL DRUG DOSING (CG) 48.76 mL/min; POTASSIUM,K 4.3 mmol/L (3.5-5.1)
[2024-08-06 10:44] VITALS: BP 149/64; PULSE 75
== END 2024-08-06 11:40 | disposition home or self-care (01) | DRG 149 ==
LOC: LB.ED 02:15 → LB.MS 10:45
PROVIDERS: ADMIT Surgery; ATTEND Surgery
DX: R42 Dizziness and giddiness (principal); N17.9 Acute kidney failure, unspecified; H91.90 Unspecified hearing loss, unspecified ear; H54.7 Unspecified visual loss; K21.9 Gastro-esophageal reflux disease without esophagitis; M19.90 Unspecified osteoarthritis, unspecified site; M54.2 Cervicalgia; G89.29 Other chronic pain; E11.9 Type 2 diabetes mellitus without complications; R51.9 Headache, unspecified; Z88.0 Allergy status to penicillin; Z79.84 Long term (current) use of oral hypoglycemic drugs; Z79.899 Other long term (current) drug therapy
CPT/HCPCS: 36415; 70450; 70496; 70498; 80048; 80053; 82947; 83735; 84484; 85027; 93005; 93010; 96361; 96374; 96375; 96376; 99222; 99238; 99285-25; A0425; A0428; A9270-GY; J0780; J1171; J1200; J1815; J2270; J2405; J2550; J3360; J3490; J7030; J7120; Q0164

== ENCOUNTER 2025-03-02 14:42 | Emergency (ER) | payer MEDICARE ==
[2025-03-02] MEDS: LORazepam 2 MG/ML SDV IM PRN (16:36)
[2025-03-02 17:09] VITALS: BP 118/62; PULSE 70
== END 2025-03-02 16:43 | disposition home or self-care (01) ==
LOC: LB.ED 14:42
DX: R42 Dizziness and giddiness (principal); K21.9 Gastro-esophageal reflux disease without esophagitis; E11.9 Type 2 diabetes mellitus without complications; Z88.0 Allergy status to penicillin; Z79.899 Other long term (current) drug therapy
CPT/HCPCS: 96372; 99283; J2060